=== PATIENT | female | born 1985 | race African-American/Black ===

== ENCOUNTER 2024-07-07 21:19 | Inpatient (IN) | payer OTHER, SELFPAY ==
--- NOTE | 2024-07-07 | ECG_ITS ---
Test Reason : chest tightness Blood Pressure : */* mmHG Vent. Rate : 115 BPM Atrial Rate : 115 BPM P-R Int : 134 ms QRS Dur : 78 ms QT Int : 316 ms P-R-T Axes : 48 86 -8 degrees QTcB Int : 437 ms Sinus tachycardia Nonspecific T wave abnormality Abnormal ECG No previous ECGs available Referred By: Generic ED Physician Electronically Signed By: MONROE RICHEY MD
--- NOTE | ~2024-07-07 | US_ITS ---
CLINICAL HISTORY: pain, swelling L leg - PE + on CT Venous duplex ultrasound bilateral lower extremity Comparison: None Findings: The visualized deep veins of the right lower extremity appear patent. Thrombus identified at the left common femoral vein, left popliteal vein, and left peroneal vein. The thrombus appears partially occlusive at the left common femoral vein. The thrombus may be occlusive the left popliteal and left peroneal veins. The remainder of the visualized deep veins of the left lower extremity appear patent. No popliteal cyst. IMPRESSION: 1. Positive for deep venous thrombosis at the left common femoral, left popliteal, and left peroneal veins. 2. Negative for right lower extremity deep venous thrombosis. This document has been electronically signed by: Ricardo Amaro MD on 07/07/2024 23:33:51
--- NOTE | ~2024-07-07 | CT_ITS ---
CLINICAL HISTORY: requested per ICU, syncope, no TERRELL, no deficits - bed 254 CT head without contrast Comparison: None Findings: No intra-axial mass, midline shift, hydrocephalus, or acute hemorrhage. No significant atrophy-like change or white matter disease. There is no sinus or mastoid fluid. The orbits are unremarkable. There is no acute fracture. IMPRESSION: 1. No acute intracranial findings. This document has been electronically signed by: Jesus Ruiz MD on 07/08/2024 05:46:44
--- NOTE | ~2024-07-07 | CT_ITS ---
CLINICAL HISTORY: R CP, tachycardia, + syncope, SOB CT angiography chest using contrast. 3-D postprocessing Comparison: CR - XR CHEST 2V - 07/07/24 21:49 EDT Findings: Saddle pulmonary embolism present with thrombus extending into the right upper lobe and right lower lobe pulmonary arteries. There also appears to be slight extension into segmental right upper lobe and right lower lobe pulmonary arterial branches. There is also extension of filling defects into the left upper lobe, lingular, and left lower lobe pulmonary arteries with additional extension into segmental pulmonary arterial branches throughout the left lung as well as subsegmental left lower lobe pulmonary arterial branches No thoracic aorta aneurysm. Heart size within normal limits. Asymmetric enlargement of the right ventricle present Minimal, patchy subpleural right lower lobe opacities are present. No focal consolidation identified within the left lung. No pneumothorax or pleural effusion. Visualized upper abdomen unremarkable. No acute fractures. Impression: 1. Saddle pulmonary embolism with a large bilateral PE burden as described above. There are findings suggesting right heart strain. 2. Minimal subpleural opacities present at the right lower lobe, possibly related to ischemia given the presence of pulmonary embolism. This document has been electronically signed by: Ricardo Amaro MD on 07/07/2024 23:26:55
--- NOTE | ~2024-07-07 | XR_ITS ---
CLINICAL HISTORY: cough shortness of breath 2 view chest x-ray. Comparison: None Findings: Vague/minimal right perihilar and right basilar densities are identified. No focal consolidation identified within the left lung. No pneumothorax or pleural effusion. Heart size normal. Impression: 1. Vague, minimal right perihilar and right basilar densities, which may represent scattered atelectasis or infiltrates. This document has been electronically signed by: Ricardo Amaro MD on 07/07/2024 22:41:28
[2024-07-07 21:32] VITALS: BP 137/81; PULSE 114; RESP 22; TEMP 37.3; O2SAT 96; BMI 33.2
[2024-07-07 21:36] LABS: MANUAL DIFF FLAG NO
[2024-07-07 21:38] LABS: Basophils Percent Auto 0.4 % (0-2); Eosinophils Absolute Auto 0.1 X10*3/uL (0.0-0.4); Eosinophils Percent Auto 0.8 % (0-4); Hematocrit 36.4 % (37.0-47.0); Hemoglobin 12.1 g/dl (12.0-16.0); Imm Gran Abs Auto 0.02 X10*3/uL (0.00-0.03); Imm Gran Pct Auto 0.3 % (0.0-0.4); Lymphocytes Absolute Auto 1.5 X10*3/uL (1.2-4.9); Lymphocytes Percent Auto 21.5 % (20-40); Mean Corpuscular HGB Conc 33.2 g/dl (31.0-35.0); Mean Corpuscular Hemoglobin 25.4 pg (27.0-33.0); Mean Corpuscular Volume 76.3 fL (80.0-98.0); Mean Platelet Volume 9.3 fL (9.4-12.3); Monocytes Absolute Auto 0.4 X10*3/uL (0.1-1.2); Monocytes Percent Auto 5.2 % (2-11); Neutrophils Absolute Auto 5.1 x10*3/uL (2.0-8.3); Neutrophils Percent Auto 71.8 % (45-73); Platelet Count 203 X10*3/uL (160-400); Red Blood Count 4.77 X10*6/uL (4.20-5.50); Red Cell Distribution Width 13.2 % (11.0-16.0); White Blood Count 7.1 X10*3/uL (4.8-10.8)
[2024-07-07 21:51] LABS: Alanine Aminotransferase 18 U/L (0-31); Albumin Level 3.9 g/dL (3.5-5.0); Alkaline Phosphatase 95 U/L (39-117); Anion Gap 13 (12-20); Aspartate Amino Transferase 25 U/L (5-31); Bilirubin Total 0.3 mg/dL (0.0-1.0); Blood Urea Nitrogen 11 mg/dL (9-16); Calcium 9.6 mg/dL (8.4-10.2); Carbon Dioxide 23 mmol/L (22-29); Chloride 108 mmol/L (96-108); Creatinine Clr Calc Pharmacy 114.7; Estimated Glomerular Filt Rate > 60; Glucose Random 163 mg/dL (60-115); Potassium 3.7 mmol/L (3.3-5.1); Sodium 140 mmol/L (135-145)
[2024-07-07 22:14] VITALS: RESP 27
--- NOTE | 2024-07-07 22:30 | PC.NURSE ---
Late entry. PT comes from waiting room- short of breath, increased work of breathing noted while ambulating to bed room. PT reports that she has been having difficulty breathing since May when she was diagnosed with pneumonia,ensdoring left calf pain that started in April, and today a syncopal episode. PT reports that she has been having difficulty doing ADL's and caring for her children. Recently travel 18 hours from [place]. IV line placed in Left AC, pt placed on chha provider notified of symptoms. VSS. plan of care ongoing
--- NOTE | 2024-07-07 22:34 | ED_ITS ---
HPI - SOB/Dyspnea General Chief Complaint: Dyspnea Stated Complaint: SOB, tightness in chest, cough Time Seen by Provider: 07/07/24 22:24 Source: patient Mode of arrival: ambulatory Limitations: no limitations History of Present Illness ED Provider: Dr. Abigail Fitzgerald HPI Narrative: Patient comes to the emergency room complaining of shortness of breath and palpitations. Patient states that yesterday started with a dry cough and right lateral rib pain. Patient states that today she has been short of breath all day, today she took a shower and coming out of the bathroom walking towards the door she has syncopal episode. Patient states that she does not remember if she hit the ground hard or if she was able to lower herself down. Patient denies headache or neck pain. Patient denies being on any blood thinners. Patient states that about a month ago she was diagnosed with a pneumonia and gradually was getting better. Patient complaining of chest tightness, mild discomfort, no significant pain. Patient states that she gets extremely short of breath with very minimal exertion. Patient states that she just drove 18 hours straight. Related Data Allergies Allergy/AdvReac Type Severity Reaction Status Date / Time No Known Allergies Allergy Verified 07/07/24 21:36 Review of Systems 2 Review of Systems: Constitutional : No Weight loss, No Fever, No Chills, No Night Sweats, No Fatigue, No Malaise ENT/Mouth : No Hearing loss, No Ear Pain, No Nasal Congestion, No Sinus Pain, No Hoarseness, No sore throat, No Rhinorrhea, No Swallowing Difficulty Eyes: No Eye Pain, No Swelling, No Redness, No Foreign Body, No Discharge, No Vision Changes Cardiovascular : Complaining of mild chest tightness, localized chest pain on the right side of the chest, shortness of breath, palpitations Respiratory : No Cough, No Sputum, No Wheezing, No Smoke Exposure, complaining of dyspnea with exertion Gastrointestinal : No Nausea, No Vomiting, No Diarrhea, No Constipation, No abdominal Pain, No Hematochezia, No Melena Genitourinary : no irregular bleeding, No Dysuria, No Urinary Frequency, No Hematuria, No Urinary Incontinence, No Urgency, No Flank Pain, No Urinary Flow Changes, No Hesitancy Musculoskeletal : No joint pain, No Myalgias, No Joint Swelling Skin : No Skin Lesions, No rash Neuro : No Weakness, No Numbness, No Paresthesias, No Loss of Consciousness, No Dizziness, No Headache Psych : No Anxiety/Panic, No Depression, No SI/HI/AH/VH, No Social Issues, Heme/Lymph: No Bruising, No Bleeding,No Lymphadenopathy Endocrine : No Polyuria, No Polydipsia, No Temperature Intolerance PMFSH Social History Social History Smoked in Last 30 Days: No Physical Exam 2 Vital Signs: Vital Signs: Last Vital Signs Temp 99.2 F 07/07/24 21:32 Pulse 104 H 07/07/24 23:16 Resp 27 H 07/07/24 22:14 BP 119/76 07/07/24 23:16 Pulse Ox 84 L 07/07/24 23:28 O2 Del Method Room Air 07/07/24 21:32 BMI result Body Mass Index 33.9 Const: Other: Appearance: Alert. Oriented X3. No acute distress. Eyes: Pupils equal, round and reactive to light. ENT: Pharynx normal. Neck: Normal inspection. Neck supple. No lymph nodes noted. No crepitus CVS: Normal heart rate and rhythm. Pulses normal. Normal S1 and S2 Respiratory: Normal breath sounds, no rales or crackles, patient's respiratory rate 06/09/2029. Abdomen: Soft and nontender. No rigidity. No distention. Skin: Skin warm and dry. Normal skin color. Normal skin turgor. Extremities: mild pain to palpation over the left leg, mild swelling Neuro: Oriented X 3. No motor deficit. No sensory deficit. Moving all extremities. No slurred speech. CN 2 through 12 grossly intact Psych: calm, cooperative, normal affect Medications Administered Discontinued Medications Generic Name Dose Route Start Last Admin Trade Name [place] PRN Reason Stop Dose Admin Enoxaparin Sodium 90 mg 07/07/24 22:54 07/07/24 23:10 Enoxaparin Sodium 100 Mg/Ml Syringe 1 mg/kg (90 mg) 07/07/24 22:55 90 mg SUBCUT Administration ONCE ONE Iohexol 75 ml 07/07/24 22:47 07/07/24 22:47 Iohexol 350 Mg/Ml 100 Ml Infus..Btl IV 07/07/24 22:48 75 ml ONCE ONE Administration Medical Decision Making Medical Decision Making MDM Narrative: My interpretation of EKG: Sinus tachycardia, heart rate 116, no ST segment depression or elevation, nonspecific T-wave inversion in lead 3, AVF, QTC 437 My interpretation of labs: No significant abnormality in patient's hematology, chemistry shows normal electrolytes. Normal LFTs, troponin 448 Chest x-ray: Minimal right perihilar and right basilar densities, atelectasis versus infiltrates Given the patient's symptoms and presentations, I ordered a CT scan to rule out pulmonary embolism and ultrasound of both lower extremities CTA scan was done. My interpretation: Saddle embolus suspected, Radiology report pending, stat radiology report requested Lovenox 1 milligram/kilogram has been ordered. Patient is hemodynamically stable, blood pressure 137/81, heart rate [address] with Radiology, it has been confirmed that the patient has a saddle embolism with right heart strain Also, patient has a large DVT at the left common femoral left popliteal and left peroneal veins I discussed the patient with Dr. El from the ICU, patient is hemodynamically stable, oxygen saturation 96% on room air. TNK is not indicated I also discussed the patient with Dr. Dyson from vascular surgery. Patient already got Lovenox as mentioned above. Per Dr. Dyson, patient to remain NPO starting now and we will start heparin. Blood clott retrieval surgery will likely be done in the morning. Patient has 2 young children with her here in the hospital, one child is 10-year-old and the other is an 8-year-old. Patient has no family in the [place] states and no friends who can watch over children. I discussed with the patient that we can have DCF help temporarily house it children while she gets treatment. Patient states that if we called DCF, she will leave against medical advice. She does not want us to call DCF at all. It was discussed with the patient that if DCF gets involves, it is not due to social issues where she would lose the custody of the children, this would just be temporary housing for a few days until patient is discharged from the hospital. It was thoroughly explained to the patient that her condition may be fatal if left untreated or if she leaves AMA. Patient adamant that she will not allow her kids to go with DCF and she will walk out with them if DCF comes. I spoke with our greenhouse worker and charge nurse. We will make arrangements to be able to keep the children here. Although both kids are young, they are very well-behaved. They may need a sitter for a few hours while the patient gets her procedure done in the morning. Differential Diagnosis Differential Diagnoses: The differential diagnosis associated with the presentation includes (Pulmonary embolism, pneumonia, CHF) Admission/Observation Consideration of admission/observation: Escalation of care including admission/observation considered Consult Healthcare Provider Management of the patient was discussed with: Hospitalist Lab Data MDM Lab Attestation statement: I reviewed the patient's lab results. 07/07/24 21:30 07/07/24 21:30 Labs: Lab Results 07/07/24 07/07/24 Range/Units 21:30 23:31 WBC 7.1 (4.8-10.8) X10*3/uL RBC 4.77 (4.20-5.50) X10*6/uL Hgb 12.1 (12.0-16.0) g/dl Hct 36.4 L (37.0-47.0) % MCV 76.3 L (80.0-98.0) fL MCH 25.4 L (27.0-33.0) pg MCHC 33.2 (31.0-35.0) g/dl RDW 13.2 (11.0-16.0) % Plt Count 203 (160-400) X10*3/uL MPV 9.3 L (9.4-12.3) fL Immature Gran % (Auto) 0.3 (0.0-0.4) % Neut % (Auto) 71.8 (45-73) % Lymph % (Auto) 21.5 (20-40) % [place] % (Auto) 5.2 (2-11) % Eos % (Auto) 0.8 (0-4) % Baso % (Auto) 0.4 (0-2) % Lymph # (Auto) 1.5 (1.2-4.9) X10*3/uL [place] # (Auto) 0.4 (0.1-1.2) X10*3/uL Eos # (Auto) 0.1 (0.0-0.4) X10*3/uL Baso # (Auto) 0.0 (0.0-0.2) X10*3/uL Abs Immat Gran (auto) 0.02 (0.00-0.03) X10*3/uL Absolute Neuts (auto) 5.1 (2.0-8.3) x10*3/uL Absolute Nucleated RBC 0.000 (0.0-0.012) X10*3/uL Nucleated RBC % (auto) 0.0 (0.0-0.2) /100WBC Sodium 140 (135-145) mmol/L Potassium 3.7 (3.3-5.1) mmol/L Chloride 108 (96-108) mmol/L Carbon Dioxide 23 (22-29) mmol/L Anion Gap 13 (12-20) BUN 11 (9-16) mg/dL Creatinine 0.75 (0.5-1.4) mg/dL Estim Creat Clear Calc 114.7 Estimated GFR > 60 Random Glucose 163 H (60-115) mg/dL Calcium 9.6 (8.4-10.2) mg/dL Total Bilirubin 0.3 (0.0-1.0) mg/dL AST 25 (5-31) U/L ALT 18 (0-31) U/L Alkaline Phosphatase 95 (39-117) U/L Troponin I High Sens 448.0 H* (<3.5-17.0) ng/L B-Natriuretic Peptide 37 (<100) pg/mL Total Protein 8.0 (6.5-8.0) g/dL Albumin 3.9 (3.5-5.0) g/dL Urine Color Yellow Urine Appearance Clear Urine pH 7.0 (5.0-9.0) Ur Specific [place] >= 1.030 H (1.005-1.025) Urine Protein Negative (Neg-Trace) mg/dL Urine Glucose (UA) Negative (Negative) mg/dL Urine Ketones Negative (Negative) mg/dL Urine Blood Trace H (Negative) Urine Nitrite Negative (Negative) Ur Leukocyte Esterase Trace H (Negative) Urine RBC 3-5 H (0-2) /HPF Urine WBC 0-5 (0-5) /HPF Ur Squamous Epith Cells 0-2 (0-2) /HPF Urine Bacteria None Seen (None Seen) Hyaline Casts 0-2 (0-2) /LPF Urine Test NEGATIVE (NEGATIVE) Independent Interpretation I performed an independent interpretation of an: EKG and CT Scan Critical Care Time Critical Care Time Critical Care Time: Yes Total Critical Care Time: 90 Attestation: I have personally provided critical care time. Time includes review of lab data, radiology results, discussion with consultants, and monitoring for potential decompensation. Intervention performed as documented. Discharge Plan Discharge Clinical Impression: Acute saddle pulmonary embolism, Left leg DVT Patient Disposition: Admitted As Inpatient
[2024-07-07] MEDS: iohexoL 350 MG/ML 100 ML INFUS..BTL 75 ML IV (22:47)
[2024-07-07 22:51] LABS: B Type Natriuretic Peptide 37 pg/mL (<100)
[2024-07-07] MEDS: Enoxaparin Sodium 100 MG/ML SYRINGE 90 MG SUBCUT (23:10)
[2024-07-07 23:16] VITALS: BP 119/76; PULSE 104
[2024-07-07 23:28] VITALS: O2SAT 84
[2024-07-07 23:41] LABS: Appearance Urine Clear; Color Urine Yellow; Glucose Urine UA Negative (Negative); Leukocyte Esterase Urine Trace (Negative); Nitrite Urine Negative (Negative); Specific Gravity - Urine >= 1.030 (1.005-1.025); UMIC TRIGGER UACC YES; Urine Blood Trace (Negative); Urine Ketones Negative (Negative); Urine Protein Negative (Neg-Trace)
[2024-07-07 23:46] LABS: Bacteria Urine None Seen (None Seen); Hyaline Casts Urine 0-2 /LPF (0-2); Squamous Epithelial Cell Urine 0-2 /HPF (0-2); WBC Urine 0-5 /HPF (0-5)
[2024-07-07 23:48] LABS: UPreg QC Valid YES; Urine Pregnancy NEGATIVE (NEGATIVE)
[2024-07-07 23:53] VITALS: BMI 33.9
[2024-07-08] VITALS (41 sets, daily range): BP systolic 96–133; BP diastolic 57–93; PULSE 74–98; RESP 17–32; TEMP 36.4–36.9; O2SAT 97–100; BMI 33.0
[2024-07-08] MEDS: Heparin Sodium,Porcine/1/2NS 25,000 UNIT/250 ML IV.SOLN 13.33 UNIT IVCONT (00:38)
--- NOTE | 2024-07-08 00:53 | P.HPCC_ITS ---
History of Present Illness Date of Service: 07/08/24 Attending physician on admission: Lux El Chief Complaint: Saddle PE 39-year-old female with a history of pneumonia about a month ago, had travel by car for approximately 18 hours straight. ?Presents to the emergency room complaints of shortness of breath, chest tightness and cough, palpitations for the past 24 hours.? She has also had some bilateral rib discomfort and dry cough, noted to become significantly short of breath when coming out of the shower and developed a syncopal episode. ?Patient does not recall and subsequent events or if there was any head trauma although she denied headache or neck pain. In the emergency room the patient was noted to be tachycardic, tachypneic and at some point hypoxic with O2 sat of 84% with ambulation.? Her laboratory workup was overall unremarkable with exception of troponin of 400.? She is not .? Chest x-ray shows findings concerning for infiltrates however the patient has no fever and no white count.? She did have a CT angiogram of the chest which shows saddle pulmonary embolisms with large bilateral PE burden and evidence of right heart strain.? Minimal subpleural opacities in the right lower lobe possibly related to ischemia in the setting of PE. ?Ultrasound of the left lower extremity revealed a deep vein thrombi from the left femoral into the popliteal and peroneal veins.? No DVT on the right leg.? EKG shows sinus tachycardia rate of 115 beats per minute.? There is no ST elevations or depressions noted.? QT 316 ms no comparison. Patient was given full-dose Lovenox, case was discussed with Dr. Dyson (vascular surgeon) plan for clot retrieval is planned in the morning and request to start heparin without a load was made, this was started in the emergency room. Review of Systems 2 Review of Systems: As above, otherwise the patient denies any prior history of strokes, cold intolerance, migraine headaches, head trauma, no eyes, ears or nose problems, no problems swallowing or with phonation, no thyroid disease, denies any history, coronary disease, , COPD or emphysema, abdominal pain, nausea, vomiting, diarrhea, abdominal surgeries, melena, hematochezia, hematemesis, hematuria, kidney stones, liver problems, immunocompromise state of any kind, fractures or extremity surgeries all other review of systems were reviewed and they were all negative. [facility] Social History Social History Household Members: Children Housing: Apartment Do you presently have visiting nurse or other home services: No Patient Tobacco Use Status: Never used Tobacco Smoked in Last 30 Days: No Use of substances other than those prescribed or required for medical reasons: No Currently Displaying Signs/Symptoms of Drug Intoxication Withdrawal: No Any prior treatment program specific to substance use: No Have you been hit, kicked, punched, or otherwise hurt by someone within the past year? If so, by whom?: No Do you feel safe in your current relationship?: No Current Relationship Is there a partner from a previous relationship who is making you feel unsafe now?: No Are you made to feel afraid or neglected: No Advance Directives: No Advance Directives Information Provided: Yes Do you have a plan to hurt others: No Plan Recently lost weight without trying: No How much weight loss: Not applicable Eating poorly because of decreased appetite: No Nutrition screen score: 0 Nutrition Risks: No Nutritional Risk Patient : No : No Poor oral hygiene: No Meds Allergies Allergy/AdvReac Type Severity Reaction Status Date / Time No Known Allergies Allergy Verified 07/07/24 21:36 Active Medications: Current Medications Heparin Sodium (Porcine) (Heparin Sodium,Porcine 5,000 Unit/Ml Vial) 3,800 unit 40 unit/kg (3800 unit) IVPUSH PROTOCOL BOLUS PRN; Protocol PRN Reason: 40 unit/kg - Heparin Protocol Heparin Sodium (Porcine) (Heparin Sodium,Porcine 5,000 Unit/Ml Vial) 7,600 unit 80 unit/kg (7600 unit) IVPUSH PROTOCOL BOLUS PRN; Protocol PRN Reason: 80 unit/kg - Heparin Protocol Heparin Sodium/Sodium Chloride (Heparin Sodium,Porcine/1/2ns) 25,000 unit in 250 mls @ 0 mls/hr IVCONT .Q0M PEPE; Protocol Last Admin: 07/08/24 00:38 Dose: 14 units/kg/hr, 13.33 mls/hr Physical Exam 2 Vital Signs: Vital Signs: Last Vital Signs Temp 99.2 F 07/07/24 21:32 Pulse 104 H 07/07/24 23:16 Resp 27 H 07/07/24 22:14 BP 119/76 07/07/24 23:16 Pulse Ox 84 L 07/07/24 23:28 O2 Del Method Room Air 07/07/24 21:32 BMI result Body Mass Index 33.9 General:? Alert oriented x3 no acute distress. No accessory muscle usage.? Following all commands. Skin:? Thin, Intact, no lesions, edema, erythema, clubbing or cyanosis.? No ulcers. HEENT:? Head is normocephalic, atraumatic, pupils equal. Buccal mucosa is dry Neck is supple without lymphadenopathy. Cardiac:? Clear S1-S2, no murmurs rubs or gallops. Pulmonary:? Diminished lung sounds bilaterally fine expiratory wheezing bilaterally .? No crackles, rales or rhonchi. Abdomen:? Protuberant, positive bowel sounds in all 4 quadrants.? Soft, nontender, no rebound or guarding.? Musculoskeletal:? Moving all 4 extremities upon request a major joints, there is no crepitus or tenderness.? The strength is 5/5 bilaterally and throughout all 4 extremities.? There is left lower extremity edema up to tibial plateau with clear asymmetry comparison to right. There is positive calf tenderness on the left.? Gait not assessed at this point. Neurologic:? As above.? No focal deficits noted. Vascular:? 2+ pulses upper and lower extremities distally.? Less than 2nd capillary refill of fingers and toes bilaterally upper and lower extremities Results Labs 07/08/24 01:36 07/08/24 06:33 Labs: Laboratory Results - last 24 hr 07/07/24 07/07/24 21:30 23:31 MCV 76.3 L MCH 25.4 L MCHC 33.2 RDW 13.2 Plt Count 203 MPV 9.3 L Immature Gran % (Auto) 0.3 Neut % (Auto) 71.8 Lymph % (Auto) 21.5 [place] % (Auto) 5.2 Eos % (Auto) 0.8 Baso % (Auto) 0.4 Lymph # (Auto) 1.5 [place] # (Auto) 0.4 Eos # (Auto) 0.1 Baso # (Auto) 0.0 Abs Immat Gran (auto) 0.02 Absolute Neuts (auto) 5.1 Absolute Nucleated RBC 0.000 Nucleated RBC % (auto) 0.0 Anion Gap 13 Estim Creat Clear Calc 114.7 Estimated GFR > 60 Random Glucose 163 H Calcium 9.6 Total Bilirubin 0.3 AST 25 ALT 18 Alkaline Phosphatase 95 B-Natriuretic Peptide 37 Total Protein 8.0 Albumin 3.9 Urine Color Yellow Urine Appearance Clear Urine pH 7.0 Ur Specific [place] >= 1.030 H Urine Protein Negative Urine Glucose (UA) Negative Urine Ketones Negative Urine Blood Trace H Urine Nitrite Negative Ur Leukocyte Esterase Trace H Urine RBC 3-5 H Urine WBC 0-5 Ur Squamous Epith Cells 0-2 Urine Bacteria None Seen Hyaline Casts 0-2 Urine Test NEGATIVE Assessment and Plan (1) Acute saddle pulmonary embolism: Status: Acute Plan ASSESSMENT : 1. Acute saddle pulmonary embolism 2. Right heart strain due to the above 3. Hypoxia in the setting of the above 4. Reactive tachycardia and tachypnea 5. Left lower extremity DVT 6. Reactive troponin abnormality 7. Syncope episode likely due to #1 r/o ACS PLAN OF CARE: Patient will be admitted to the ICU due to risk of decompensation setting of her saddle pulmonary emboli and right heart strain.? Vital signs, I's and O's, supplemental oxygenation via nasal cannula.? Case have been discussed with vascular surgeon Dr. Dsyon who will perform clot retrieval in the morning.? The patient received full-dose Lovenox and was subsequently started on heparin drip per protocol without a load. ?We will continue with supportive care, repeat labs in the morning.? NPO after midnight. ?Case discussed with ER physician Dr. Christina's to whom I kindly asked to order head CT given the patient's history of syncope and lack of knowledge of losses of consciousness or head trauma, however head CT can not be done until about 05:00 this morning given the contrast administered for the PE study. Echo in am. GI PROPHYLAXIS: ?IV ppi DVT PROPHYLAXIS: ?On heparin drip Critical care time used for critical evaluation of this patient, diagnosis, treatment and coordination of care, review her records and documentation TOTAL CRITICAL CARE TIME 60?? MIN . discussion and coordination with consultants, completely separate from any procedures performed. Patient's care was discussed in detail with Dr. El who is aware of all the above as well as the plan of care for this patient.
[2024-07-08 01:06] LABS: Prothrombin Time 12.2 SEC (10.9-12.4)
[2024-07-08 01:08] LABS: Partial Thromboplastin Time 38.5 SEC (26.0-36.8)
[2024-07-08 01:15] LABS: D Dimer High Sensitivity 6554 NG/ML
--- NOTE | 2024-07-08 01:31 | PC.NURSE ---
Heparin drip started at 14u/kg/h verified and cosigned by VIKTOR Mandujano. PTT drawn prior to heparin drip started. redraw due for 0996
--- NOTE | 2024-07-08 01:33 | PC.NURSE ---
Report given to Shanna CAR BLOCKER. Pt transported to ED by TW and medical research tech. Children at bedside. roundhouse supervisor and ICU provider ok'd children to stay over night as pt has no family, not from the area.
[2024-07-08 01:46] LABS: MANUAL DIFF FLAG NO
[2024-07-08 01:47] LABS: Basophils Percent Auto 0.6 % (0-2); Eosinophils Absolute Auto 0.1 X10*3/uL (0.0-0.4); Eosinophils Percent Auto 1.3 % (0-4); Hematocrit 38.3 % (37.0-47.0); Imm Gran Abs Auto 0.01 X10*3/uL (0.00-0.03); Imm Gran Pct Auto 0.1 % (0.0-0.4); Lymphocytes Absolute Auto 2.2 X10*3/uL (1.2-4.9); Lymphocytes Percent Auto 30.6 % (20-40); Mean Corpuscular HGB Conc 33.9 g/dl (31.0-35.0); Mean Corpuscular Hemoglobin 25.5 pg (27.0-33.0); Mean Corpuscular Volume 75.1 fL (80.0-98.0); Mean Platelet Volume 9.4 fL (9.4-12.3); Monocytes Absolute Auto 0.5 X10*3/uL (0.1-1.2); Monocytes Percent Auto 6.7 % (2-11); Neutrophils Absolute Auto 4.4 x10*3/uL (2.0-8.3); Neutrophils Percent Auto 60.7 % (45-73); Platelet Count 222 X10*3/uL (160-400); Red Cell Distribution Width 13.4 % (11.0-16.0); White Blood Count 7.2 X10*3/uL (4.8-10.8)
[2024-07-08 02:09] LABS: Troponin-I High Sensitivity 633.1 ng/L (<3.5-17.0)
--- NOTE | 2024-07-08 07:00 | CA_ITS ---
Transthoracic Echocardiogram Patient (Last, First, Middle): Marilynn Batista, Gender: Female Date of : 1985 Age: 39 Procedure Date: 07/08/2024 Procedure Type: Transthoracic Echocardiogram Location: ICU Height: 167.64 cm Weight: 92.53 kg BSA: 2.02 m2 Heart Rate: 91 bpm BP: 131 / 87 mmHg Mobile Phlebotomist: MARIAH Referring MD: Tae ROBISON Computer Architect: Tab Haney MD Symptoms: saddle PE Study Quality: Adequate ECG Rhythm: Sinus Conclusions: - 1. RV enlargement with findings suggestive of acute cor pulmonale 2. Normal LV ejection fraction of 60 65% 3. Cardiac valvular Dopplers within normal limits 4. Moderately elevated right ventricular systolic pressure with mildly elevated right atrial pressures 5. No gross pericardial effusion Findings Left Ventricle Normal left ventricular size, thickness, and systolic function. The visually estimated ejection fraction is between 60-65%. There is a flattened septum in systole consistent with right ventricular pressure overload. Spectral Doppler is indicative of a normal filling pattern. Right Ventricle Moderately increased right ventricular cavity size. There is hypokinesis of the free wall with preserved apical contraction, findings consistent with Coates sign suggestive of acute cor pulmonale Atria The left atrium is normal in size. There is no evidence of interatrial shunt. The right atrium is likely dilated. Aortic Valve Normal aortic valve structure and function. There is no aortic valve stenosis. There is no aortic valve regurgitation. Mitral Valve Normal mitral valve structure and function. There is trace mitral valve regurgitation. There is no mitral valve stenosis. Pulmonic Valve The pulmonic valve is likely normal. Tricuspid Valve Normal tricuspid valve structure. There is mild tricuspid valve regurgitation. Mildly elevated right atrial pressure. Moderate pulmonary hypertension is present. Great Vessels All visible segments of the aorta are normal in size. The pulmonary artery was not well visualized. Venous The inferior vena cava is normal in size and collapses less than 50% with inspiration. Pericardium/Pleural There is no evidence of pericardial effusion. Prior Study Comparison No prior study available for comparison. Measurements 2D Linear Measurements IVSd: 0.96 0.6-0.9/0.6-1.0 cm LVIDd: 3.51 3.9-5.3/4.2-5.9 cm LVIDd Index: 1.74 2.4-3.2/2.2-3.1 cm/m2 LVIDs: 2.06 2.0-3.6 cm LVPWd: 0.92 0.7-1.1 cm LA Diam: 3.10 2.7-3.8/3.0-4.0 cm LAIDs Index: 1.53 1.5-2.3 cm/m2 LV Mass: 151.61 67-162/88-224 g LV Mass Index: 75.05 43-95/49-115 g/m2 LVOT Diam: 1.80 3.0+(-)1.3 cm 2D Systolic Function EF 4C: 60.80 >55% EF 2C: 62.20 >55% EF BiP: 60.50 >55% Mitral Valve MV Pk E: 0.58 MV PK A: 0.52 MV Decel Time: 231.00 E/A: 1.10 E'Lateral: 10.00 E'Medial: 5.98 E/E' Med: 9.70 E/E' Lat: 5.80 PHT: 68.00 MVA PHT: 3.24 Decel Sharkey: 2.53 Aortic Valve AoV Pk Mk: 1.02 AoV Pk Grad: 4.00 DUANE: 2.37 LVOT LVOT Pk Mk: 0.88 LVOT Mn Mk: 0.65 LVOT VTI: 0.17 LVOT Pk Grad: 3.00 LVOT Mn Grad: 2.00 LVOT Diam: 1.80 LVOT Area: 2.54 Diastolic Function MV Pk E: 0.58 MV Pk A: 0.52 E/A: 1.10 E'Medial: 5.98 E/E' Med: 9.70 E' Laterial: 10.00 E/E' Lat: 5.80 Right Ventricle TAPSE (mm): 12.20 TVS' Mk: 8.16 Tricuspid Valve TR Pk Mk: 3.42 TR Pk Grad: 47.00 RA Press: 8.00 RVSP: 55.00 Great Vessels Aorta Sinus of Valsalva: 2.80 2.0-3.5 cm Ao Asc: 2.60 2.1-3.4 cm Pulmonary Veins Pulm Vein S/D 1.10 Pulmonary Valve PV Pk Mk: 0.50 Peak PV Grad: 1.00 Updated in Other Vendor System with Status of Final Tab Haney MD electronically signed on 07/08/2024 3:51:50 PM with status of Final
[2024-07-08 07:37] LABS: PTT Heparin Drip 105.4 SEC (53-77.9)
[2024-07-08 07:46] LABS: Alanine Aminotransferase 16 U/L (0-31); Albumin Level 3.9 g/dL (3.5-5.0); Alkaline Phosphatase 86 U/L (39-117); Anion Gap 12 (12-20); Aspartate Amino Transferase 33 U/L (5-31); Bilirubin Total 0.5 mg/dL (0.0-1.0); Blood Urea Nitrogen 9 mg/dL (9-16); Calcium 9.6 mg/dL (8.4-10.2); Carbon Dioxide 22 mmol/L (22-29); Chloride 109 mmol/L (96-108); Estimated Glomerular Filt Rate > 60; Glucose Random 92 mg/dL (60-115); Potassium 4.1 mmol/L (3.3-5.1); Sodium 139 mmol/L (135-145); Total Protein 8.2 g/dL (6.5-8.0)
--- NOTE | 2024-07-08 08:28 | PHA.MEDREC ---
Pharmacy Consult ? Medication Reconciliation Pharmacy has completed the medication reconciliation. Patient endorses taking no medications at home
[2024-07-08] MEDS: 0.9 % Sodium Chloride 1,000 ML 100 ML IVCONT (11:19)
--- NOTE | 2024-07-08 11:30 | MHC.CM.PN ---
Met w/pt to discuss d/c planning needs: pt resides w/two minor children ages 11 and 8: independent w/all care needs, works, drives and has no DME or services. Pt states she has not yet established care with a local PCP - she states she will contact [facility] to assign a provider. Pt completed a HCP and states this proxy, Giovanny Michael, will arrive [place] [facility] [place] to [place] pickler her children. Her friend Michelle Rakesh from [place] will then arrive at 8 to care for the children. Pt states she has transportation to home following surgery. She denies needing services. CM to follow Giovanny [phone] Michelle [phone]
--- NOTE | 2024-07-08 13:34 | P.CONGS_ITS ---
<Statement entered by Savage Dyson MD - 07/08/24 17:15> I have seen and evaluated the patient and agree with history, findings, assessment and plan documented by Melva Link PA-c. Patient will require pulmonary embolectomy. Risks benefits complications were discussed in detail with the patient. History of Present Illness Consult details Consult date: 07/08/24 Narrative: We were consulted for Marilynn for concerns of a saddle PE with DVT, found on chest CTA. She presented to the ER late last night with concerns of shortness of breath, palpitations, and dyspnea on exertion. She just drove 18 hours straight in the car, without stopping. She had these symptoms for 24h and got short of breath when showering and had a near syncopal episode. She was found to have a saddle PE with right heart strain as well as a DVT in the left femoral to the popliteal and peroneal veins. She was initially given Lovenox but has been switched to a Heparin drip. She was made NPO at midnight for clot retrieval today. She continues to endorse dyspnea on exertion and shortness of breath. She is not currently on O2 but is being monitored closely in the ICU. Review of Systems 2 Constitutional: Constitutional: Reports as per HPI and Denies weakness ENT: Reports Normal hearing present and Denies dizziness Cardiovascular: Cardiovascular: Reports as per HPI, Denies chest pain, Denies chest pain at rest, Denies chest pain with activity, Denies dyspnea and Denies dyspnea on exertion Respiratory: Respiratory: Reports as per HPI, Denies cough, Denies dyspnea and Denies dyspnea on exertion Gastrointestinal: Gastrointestinal: Reports as per HPI, Denies abdominal pain, Denies nausea and Denies vomiting Musculoskeletal: Musculoskeletal: Denies numbness Integumentary/Breasts: Skin/Breast: Reports as per HPI, Denies erythema and Denies wounds Neurologic: Reports Normal hearing present, Denies dizziness, Denies numbness, Denies Sensory deficit (Neuro) and Denies weakness Psychiatric: Psychiatric: Reports no additional psychiatric complaints Endocrine: Endocrine: Reports no additional endocrine complaints PMFSH Social History Social History Household Members: Children Housing: Apartment Do you presently have visiting nurse or other home services: No Patient Tobacco Use Status: Never used Tobacco Smoked in Last 30 Days: No Use of substances other than those prescribed or required for medical reasons: No Currently Displaying Signs/Symptoms of Drug Intoxication Withdrawal: No Any prior treatment program specific to substance use: No Have you been hit, kicked, punched, or otherwise hurt by someone within the past year? If so, by whom?: No Do you feel safe in your current relationship?: No Current Relationship Is there a partner from a previous relationship who is making you feel unsafe now?: No Are you made to feel afraid or neglected: No Advance Directives: No Advance Directives Information Provided: Yes Do you have a plan to hurt others: No Plan Recently lost weight without trying: No How much weight loss: Not applicable Eating poorly because of decreased appetite: No Nutrition screen score: 0 Nutrition Risks: No Nutritional Risk Patient : No : No Poor oral hygiene: No service: No Meds Allergies Allergy/AdvReac Type Severity Reaction Status Date / Time No Known Allergies Allergy Verified 07/07/24 21:36 Active Medications: Current Medications Heparin Sodium (Porcine) (Heparin Sodium,Porcine 5,000 Unit/Ml Vial) 3,800 unit 40 unit/kg (3800 unit) IVPUSH PROTOCOL BOLUS PRN; Protocol PRN Reason: 40 unit/kg - Heparin Protocol Heparin Sodium (Porcine) (Heparin Sodium,Porcine 5,000 Unit/Ml Vial) 7,600 unit 80 unit/kg (7600 unit) IVPUSH PROTOCOL BOLUS PRN; Protocol PRN Reason: 80 unit/kg - Heparin Protocol Heparin Sodium/Sodium Chloride (Heparin Sodium,Porcine/1/2ns) 25,000 unit in 250 mls @ 0 mls/hr IVCONT .Q0M [facility]; Protocol Last Titration: 07/08/24 13:32 Dose: 0 units/kg/hr, 0 mls/hr Sodium Chloride (Ns) 1,000 mls @ 100 mls/hr IVCONT .Q10H [facility] Last Admin: 07/08/24 11:19 Dose: 100 mls/hr Physical Exam 2 Vital Signs: Vital Signs: Last Vital Signs Temp 98.1 F 07/08/24 12:00 Pulse 95 07/08/24 13:00 Resp 22 H 07/08/24 13:00 BP 117/76 07/08/24 13:00 Pulse Ox 100 07/08/24 13:00 O2 Del Method Room Air 07/08/24 13:00 BMI result Body Mass Index 33.0 Const: General: comfortable and no acute distress O rientation/consciousness: patient oriented x3 HEENT: Ears: hearing grossly normal bilaterally Resp: Other: Increased work of breathing noted. Able to speak in complete sentences but winded easily. Effort & Inspection: normal respiratory effort, able to speak in complete sentences and tachypneic Auscultation: clear to auscultation bilaterally Cardio: Rate: regular rate Rhythm: regular rhythm Heart sounds: S1 normal heart sound present and S2 normal heart sound present Bruits: no abdominal aortic bruits, no carotid bruits, no femoral bruits and no renal bruits GI: Palpation (GI): No Abdominal aortic bruit present Neuro: General: patient oriented x3 Cranial nerves: Yes Normal hearing present Sensory Exam: No Sensory deficit (Neuro) Extrem: Other: Bilateral lower extremities: no erythema or warmth noted. Palpable DP pulses. Results Labs 07/09/24 05:22 07/09/24 05:22 Labs: Abnormal lab results 07/07/24 07/07/24 07/08/24 Range/Units 21:30 23:31 00:40 Hct 36.4 L (37.0-47.0) % MCV 76.3 L (80.0-98.0) fL MCH 25.4 L (27.0-33.0) pg MPV 9.3 L (9.4-12.3) fL APTT 38.5 H (26.0-36.8) SEC aPTT Heparin Protocol (53-77.9) SEC Chloride (96-108) mmol/L Random Glucose 163 H (60-115) mg/dL AST (5-31) U/L Troponin I High Sens 448.0 H* (<3.5-17.0) ng/L Total Protein (6.5-8.0) g/dL Ur Specific [place] >= 1.030 H (1.005-1.025) Urine Blood Trace H (Negative) Ur Leukocyte Esterase Trace H (Negative) Urine RBC 3-5 H (0-2) /HPF 07/08/24 07/08/24 07/08/24 Range/Units 01:35 01:36 06:33 Hct (37.0-47.0) % MCV 75.1 L (80.0-98.0) fL MCH 25.5 L (27.0-33.0) pg MPV (9.4-12.3) fL APTT (26.0-36.8) SEC aPTT Heparin Protocol 105.4 H (53-77.9) SEC Chloride 109 H (96-108) mmol/L Random Glucose (60-115) mg/dL AST 33 H (5-31) U/L Troponin I High Sens 633.1 H* (<3.5-17.0) ng/L Total Protein 8.2 H (6.5-8.0) g/dL Ur Specific [place] (1.005-1.025) Urine Blood (Negative) Ur Leukocyte Esterase (Negative) Urine RBC (0-2) /HPF Short CBC 07/07/24 07/08/24 Range/Units 21:30 01:36 WBC 7.1 7.2 (4.8-10.8) X10*3/uL Hgb 12.1 13.0 (12.0-16.0) g/dl Hct 36.4 L 38.3 (37.0-47.0) % Plt Count 203 222 (160-400) X10*3/uL BMP 07/07/24 07/08/24 21:30 06:33 Sodium 140 139 Potassium 3.7 4.1 Chloride 108 109 H Carbon Dioxide 23 22 BUN 11 9 Creatinine 0.75 0.67 Calcium 9.6 9.6 Liver Function 07/07/24 07/08/24 Range/Units 21:30 06:33 Total Bilirubin 0.3 0.5 (0.0-1.0) mg/dL AST 25 33 H (5-31) U/L ALT 18 16 (0-31) U/L Alkaline Phosphatase 95 86 (39-117) U/L Albumin 3.9 3.9 (3.5-5.0) g/dL Urine 07/07/24 Range/Units 23:31 Urine Color Yellow Urine Appearance Clear Urine pH 7.0 (5.0-9.0) Ur Specific [place] >= 1.030 H (1.005-1.025) Urine Protein Negative (Neg-Trace) mg/dL Urine Glucose (UA) Negative (Negative) mg/dL Urine Test NEGATIVE (NEGATIVE) All other labs normal. Assessment and Plan (1) Acute saddle pulmonary embolism: Qualifiers: Acute cor pulmonale presence: unspecified Qualified Code(s): I26.92 - Saddle embolus of pulmonary artery without acute cor pulmonale Status: Acute Plan We were consulted on Marilynn, who presented to the ER last night with shortness of breath, heart palpitations, and dyspnea on exertion. She had been experiencing these symptoms for appx 24h, after driving 18 hours straight in the car. She was found to have a saddle PE on chest CTA as well as DVT in the left femoral vein to the popliteal and peroneal veins. She is a nonsmoker and has never had a blood clot before. She was started on a Heparin drip and admitted to the ICU for clot retrieval today. She continues to endorse shortness of breath and dyspnea on exertion. We will be taking her today for an embelectomy of the saddle PE. We discussed that she will need to continue on oral anticoagulation for at least 6 months. Thank you for the consult, we will continue to monitor. If there are any questions or concerns, please do not hesitate to reach out to us. Procedures Date of Service Date of Service: 07/09/24
[2024-07-08] MEDS: fentaNYL citrate/PF 100 MCG/2 ML VIAL 25 MCG IVPUSH ×3 (14:45→15:45)
[2024-07-08] MEDS: Midazolam HCl 2 MG/2 ML VIAL 0.5 MG IVPUSH ×3 (14:45→15:45)
[2024-07-08] MEDS: Heparin Sodium,Porcine 10,000 UNIT/10 ML VIAL 10000 UNIT IVPUSH (15:00)
--- NOTE | 2024-07-08 17:24 | P.OP_ITS ---
Operative Note Operative Note Date of Service: 07/08/24 Narrative: Operative note by [facility] Preoperative diagnosis: DVT with PE Postoperative diagnosis: Same Procedure:1. Ultrasound-guided right common femoral vein access 2. Inferior vena cavogram 3. Selective right pulmonary artery angiogram 4. Selective left pulmonary artery angiogram 5. Mechanical thrombectomy of pulmonary embolism of bilateral pulmonary artery 6. Return of blood using flow Saver system 7. Radiologic supervision and interpretation. Surgeon:Savage Dyson M.D. Medical Sonographer: None Anesthesia: Local with moderate conscious sedation. Total intraservice moderate sedation time was 100 minutes. I monitored the patient's level of consciousness and physiologic status continuously throughout the procedure. Specimens: none Drains :none Estimated blood loss: Less than 50 ml Implant: None Comorbid conditions: Acute respiratory failure with hypoxia, acute saddle pulmonary embolism, right heart strain , Indications: Patient was noted to have submassive pulmonary embolism.. CT of t he chest was reviewed and demonstrated saddle pulmonary embolism. Heparin drip was initiated immediately. Due to the clot burden the patient now presents for pulmonary embolectomy. The patient has signed the informed consent after reviewing risks, complications, benefits, and alternatives previously discussed with the patient. The patient was given the opportunity to ask any additional questions or voice any concerns. All questions were answered to the patient's satisfaction. Procedure in detail: Patient was brought to the angiography suite prior to which a time-out was called for patient identification and site verification. Bilateral groins were prepped and draped in the standard surgical fashion. Under ultrasound guidance right common femoral vein was punctured with micro puncture needle and wire. Subsequently a precision 5 Bel[place]ian sheath was then placed. Bentson wire was advanced to the level of the vena cava. 4 Bel[place]ian Flush catheter was brought up and parked at the level of the renal arteries. Vena cavogram was then undertaken. The patient was systemically anticoagulated with heparin [place] [address] units of heparin. We then advanced a Bentson wire all the way up into the inferior vena cava to the atrial junction. We then advanced a pigtail catheter through that from the right atrium to the right ventricle into the pulmonary artery. We then readvanced the Bentson wire through this. In order to confirm appropriate positioning and no trauma to cardiac tissue we advanced pigtail catheter. We met no resistance. At this time we did a selective image the right main pulmonary artery and subsequently the left main pulmonary artery. We then advanced the INTRI 24 [place]ian sheath. Over this we then placed TRIEVER 24 large- bore catheter. This was directed towards the right pulmonary artery. We then successfully aspirated moderate clot burden. Once the syringe was filled we placed this through the flow Saver blood filtering system and returned the blood back to the patient. Several aspirations were performed until we had no thrombus return. Once this was all done completion imaging was then undertaken. No residual thrombus was noted. In a similar fashion we then turned our attention to the left. We advanced a Doherty wire into the left main pulmonary artery we advanced a 16 Bel[place]ian flow tree verse system we were able to do multiple aspirations and obtain good clot burden. Completion angiogram demonstrated good result Catheter wire and sheath were removed. Pursestring suture was placed 10 minutes of direct pressure was held. Patient tolerated the procedure well and was returned to recovery with stable vitals. Interpretation of films: 1. Ultrasound was used to evaluate access site of the femoral vein. The femoral vein was noted to be patent with no thrombus. Ultrasound was used for visualization of needle entry. Image was saved to PACS 2. Vena cavogram demonstrated normal caliber vena cava with no evidence of thrombus. 3. Pulmonary artery imaging demonstrated - significant clot burden with saddle pulmonary embolism 4. Completion imaging demonstrated excellent resolution of clot Conclusion: 1. Successful aspiration of bilateral pulmonary embolisms 2. Anticoagulation status: Continue heparin drip. Can restart formal oral anticoagulation tomorrow This note is constructed using voice recognition software. While every effort has been made to ensure accuracy, dental specialist errors may have been included. Thank you for allowing me to participate in the care of your patient. Yours sincerely, Savage Dyson MD, FACS, R.P.V.I.
[2024-07-08] MEDS: oxyCODONE HCl Immed Release 5 MG TABLET PO (21:32)
[2024-07-08 23:06] LABS: PTT Heparin Drip 81.2 SEC (53-77.9)
[2024-07-09] VITALS (16 sets, daily range): BP systolic 97–138; BP diastolic 49–72; PULSE 74–99; RESP 16–25; TEMP 36.3–36.8; O2SAT 96–100; BMI 35.4
[2024-07-09] MEDS: 0.9 % Sodium Chloride 1,000 ML 100 ML IVCONT ×2 (00:17→09:41)
[2024-07-09] MEDS: Heparin Sodium,Porcine/1/2NS 25,000 UNIT/250 ML IV.SOLN 8.57 UNIT IVCONT (00:17)
[2024-07-09] MEDS: Acetaminophen 325 MG TABLET 650 MG PO ×2 (05:45→11:59)
[2024-07-09 06:07] LABS: MANUAL DIFF FLAG NO
[2024-07-09 06:09] LABS: Basophils Percent Auto 0.5 % (0-2); Eosinophils Absolute Auto 0.1 X10*3/uL (0.0-0.4); Eosinophils Percent Auto 2.1 % (0-4); Hematocrit 30.8 % (37.0-47.0); Hemoglobin 10.4 g/dl (12.0-16.0); Imm Gran Abs Auto 0.03 X10*3/uL (0.00-0.03); Imm Gran Pct Auto 0.5 % (0.0-0.4); Lymphocytes Absolute Auto 1.9 X10*3/uL (1.2-4.9); Lymphocytes Percent Auto 29.5 % (20-40); Mean Corpuscular HGB Conc 33.8 g/dl (31.0-35.0); Mean Corpuscular Hemoglobin 25.9 pg (27.0-33.0); Mean Corpuscular Volume 76.8 fL (80.0-98.0); Mean Platelet Volume 10.4 fL (9.4-12.3); Monocytes Absolute Auto 0.5 X10*3/uL (0.1-1.2); Monocytes Percent Auto 7.3 % (2-11); Neutrophils Percent Auto 60.1 % (45-73); Platelet Count 191 X10*3/uL (160-400); Red Blood Count 4.01 X10*6/uL (4.20-5.50); Red Cell Distribution Width 13.5 % (11.0-16.0); White Blood Count 6.6 X10*3/uL (4.8-10.8)
[2024-07-09 06:19] LABS: PTT Heparin Drip 61.7 SEC (53-77.9)
[2024-07-09 06:26] LABS: Alanine Aminotransferase 12 U/L (0-31); Albumin Level 3.2 g/dL (3.5-5.0); Alkaline Phosphatase 66 U/L (39-117); Anion Gap 11 (12-20); Aspartate Amino Transferase 21 U/L (5-31); Bilirubin Total 0.5 mg/dL (0.0-1.0); Blood Urea Nitrogen 12 mg/dL (9-16); Calcium 8.5 mg/dL (8.4-10.2); Carbon Dioxide 21 mmol/L (22-29); Chloride 111 mmol/L (96-108); Creatinine Clr Calc Pharmacy 145.9; Estimated Glomerular Filt Rate > 60; Glucose Random 86 mg/dL (60-115); Potassium 4.1 mmol/L (3.3-5.1); Sodium 139 mmol/L (135-145); Total Protein 6.4 g/dL (6.5-8.0)
--- NOTE | 2024-07-09 06:30 | PC.NURSE ---
Assumed care 190. Pt alert and oriented x4. SpO2 >98% on RA, no c/o of sob. Moderate amount of blood draining?from R groin surgical site, dressing changed. ENRIQUETA Burns made aware, order to apply sandbag. Heparin gtt adjusted per PTT-HD - see MAR. PRN oxycodone administered for pain x1 with good effect - see JUN. 0500 - No further bleeding from surgical site - sandbag removed.
--- NOTE | 2024-07-09 11:04 | P.PNCC_ITS ---
Subjective Subjective Date of Service: 07/09/24 Interval History: Had some oozing through the left femoral access site overnight which is improving now. Otherwise doing well Critical Care Time (minutes): 35 Physical Exam 2 Vital Signs: Vital Signs: Last Vital Signs Temp 97.5 F 07/09/24 08:00 Pulse 78 07/09/24 10:00 Resp 21 H 07/09/24 10:00 BP 126/63 07/09/24 10:00 Pulse Ox 100 07/09/24 10:00 O2 Del Method Room Air 07/09/24 10:00 O2 Flow Rate 2 07/08/24 16:20 BMI result Body Mass Index 35.4 General: Not in acute distress, comfortably sitting in the bed Nutritional Appearance: well nourished and overweight Eyes: appearance normal, both eyes and all related structures; Alignment and Position: alignment normal and position normal Neck: No lymphadenopathy, no thyromegaly Resp: bilateral air entry equal, no added sounds present Cardio: Regular rate, regular rhythm; Heart sounds: S1 normal heart sound present and S2 normal heart sound present GI: soft, nontender, no guarding, no hepatosplenomegaly : bladder normal to inspection, bladder normal to palpation, no renal angle tenderness Skin: no rashes or lesions noted and elasticity normal Neuro: oriented to person, oriented to place, oriented to time and moves all extremities Objective Data Labs 07/09/24 05:22 07/09/24 05:22 Labs: Laboratory Results - last 24 hr 07/08/24 07/09/24 22:54 05:22 WBC 6.6 RBC 4.01 L D Hgb 10.4 L Hct 30.8 L MCV 76.8 L MCH 25.9 L MCHC 33.8 RDW 13.5 Plt Count 191 MPV 10.4 Immature Gran % (Auto) 0.5 H Neut % (Auto) 60.1 Lymph % (Auto) 29.5 Campbell % (Auto) 7.3 Eos % (Auto) 2.1 Baso % (Auto) 0.5 Lymph # (Auto) 1.9 Campbell # (Auto) 0.5 Eos # (Auto) 0.1 Baso # (Auto) 0.0 Abs Immat Gran (auto) 0.03 Absolute Neuts (auto) 4.0 Absolute Nucleated RBC 0.000 Nucleated RBC % (auto) 0.0 aPTT Heparin Protocol 81.2 H D 61.7 D Sodium 139 Potassium 4.1 Chloride 111 H Carbon Dioxide 21 L Anion Gap 11 L BUN 12 Creatinine 0.61 Estim Creat Clear Calc 145.9 Estimated GFR > 60 Random Glucose 86 Calcium 8.5 D Total Bilirubin 0.5 AST 21 ALT 12 Alkaline Phosphatase 66 Total Protein 6.4 L Albumin 3.2 L Progress Note: A&P Assessment and plan (1) Left leg DVT: Status: Acute (2) Acute saddle pulmonary embolism: Status: Acute Plan Saddle pulmonary embolism: Secondary to left lower extremity DVT which she had symptoms for about 2-3 weeks Her travel history was 2 months ago where she drove from [place] to [place]. We need to look for other etiology. Needs hematology follow-up upon discharge and a complete thrombophilia workup 3 months later. Pending factor 5 leiden mutation. Status post thrombectomy by Dr. Dyson yesterday. Continues to be on a heparin drip, we will switch to p.o. apixaban when I am sure that the access site bleeding has completely stopped. Breathing stable in room air Acute blood loss anemia: Hemoglobin dropped from 13 to 10.4 secondary to bleeding We will continue to closely monitor, transfuse if hemoglobin drops below 7 grams/deciliter We will transfer to floor Quality Stroke Does the patient have a stroke diagnosis?: No VTE Prior VTE?: No VTE Risk Level:: Medical - moderate - high VTE Device Contraindication: N/A - Device Ordered VTE Drug Contraindication: N/A - Med Ordered
--- NOTE | 2024-07-09 12:25 | PM.EVENT ---
Event Note Date of Service: 07/09/24 Event Note: 39-year-old woman admitted to the ICU for saddle emboli hypoxia Acute hypoxic respiratory failure secondary to acute saddle pulmonary embolism with right heart strain Recent car travel 2 months ago No longer on oxygen Thrombophilia workup outpatient Initially started on IV heparin, switched to apixaban Underwent mechanical thrombectomy of pulmonary embolism 07/08/2024 Left lower extremity DVT Continue apixaban Elevated troponin Likely secondary to saddle emboli Syncope Likely secondary to submassive PE Head CT with no acute intracranial findings DVT prophylaxis with Xarelto Time Spent With Patient Time: Total time managing care of this patient today ____ minutes.
[2024-07-09] MEDS: Apixaban 5 MG TABLET 10 MG PO ×2 (12:43→20:39)
--- NOTE | 2024-07-09 12:51 | PC.NURSE ---
Assumed care of patient 0700. Pt asleep 0700. Awakened 0730, sx site to right groin assessed. No signs of bleeding. Dressing is clean dry intact with scant amount of dried serosanguineous drainage. Patient A+Ox4, states minimal pain to sx site. Positive palpable peripheral pulses. Pt on heparin gtt @9 u/kg/hr and NS IVF @100 ml/hr. Patient ambulated short distance to commode 09:30 and 12:45, voided twice on commode, yellow urine. approx 12:45 heparin gtt and continuous IVF discontinued and patient transitioned to PO eliquis 10mg. Medication given. Patient ate small meals brought from home by HCP Giovanny and is drinking water. States mild indigestion. Plan for transfer to [facility] per Dr. El's orders.
[2024-07-09] MEDS: oxyCODONE HCl Immed Release 5 MG TABLET PO (20:38)
[2024-07-09 21:48] LABS: Glucose, Whole Blood 90 mg/dL (60-115)
[2024-07-10 03:56] VITALS: BP 106/61; PULSE 72; RESP 18; TEMP 36.6; O2SAT 98
[2024-07-10 06:00] VITALS: BMI 34.2
[2024-07-10] MEDS: Apixaban 5 MG TABLET 10 MG PO ×2 (07:39→20:50)
[2024-07-10 07:49] VITALS: BP 120/68; PULSE 82; RESP 20; TEMP 37.1; O2SAT 97
--- NOTE | 2024-07-10 08:59 | MHC.CM.PN ---
CM met with Patient at bedside. Patient has a new PCP appointment in February and is requesting assistance with finding a new PCP with an earlier initial appointment date. CM provided Patient with the PCP Brochure and left a message with CM for tomorrow (today is Thursday) to see if CM Business Machine Mechanic can assist. Patient is also looking for a [employer]. CM will follow.
--- NOTE | 2024-07-10 10:16 | P.PNIM_ITS ---
Subjective Subjective Date of Service: 07/10/24 Review of Systems Follow up submassive PE off oxygen, no hypoxia s/p thrombectomy Physical Exam 2 Vital Signs: Vital Signs: Last Vital Signs Temp 98.7 F 07/10/24 07:49 Pulse 82 07/10/24 07:49 Resp 20 07/10/24 07:49 BP 120/68 07/10/24 07:49 Pulse Ox 97 07/10/24 07:49 O2 Del Method Room Air 07/10/24 07:49 O2 Flow Rate 2 07/08/24 16:20 BMI result Body Mass Index 34.2 Appearing in no acute distress lung sounds are clear to auscultation heart regular rate rhythm, clear S1, S2 positive bowel sounds, abdomen is soft, nontender neuro patient is alert x3, no focal deficits Objective Data Active Medications Acetaminophen (Acetaminophen 325 Mg Tablet) 650 mg PO Q6H PRN PRN Reason: Pain, Mild (Pain Scale 1-3) Last Admin: 07/09/24 11:59 Dose: 650 mg Documented By: JUDE Apixaban (Apixaban 5 Mg Tablet) 10 mg PO BID PEPE Stop: 07/15/24 21:01 Last Admin: 07/10/24 07:39 Dose: 10 mg Documented By: DEREK Morphine Sulfate (Morphine Sulfate 4 Mg/Ml Cartridge) 4 mg IVPUSH Q2H PRN; Protocol PRN Reason: Pain, Severe (Pain Scale 7-10) Oxycodone HCl (Oxycodone Hcl Immed Release 5 Mg Tablet) 5 mg PO Q4H PRN PRN Reason: Pain, Moderate(Pain Scale 4-6) Last Admin: 07/09/24 20:38 Dose: 5 mg Documented By: YARY Labs 07/09/24 05:22 07/09/24 05:22 Labs: Laboratory Results - last 24 hr 07/09/24 21:35 POC Glucose 90 Assessment and Plan (1) Acute saddle pulmonary embolism: Status: Acute (2) Left leg DVT: Status: Acute Plan 39-year-old woman admitted to the ICU for saddle emboli hypoxia Acute hypoxic respiratory failure secondary to acute saddle pulmonary embolism with right heart strain. Resolved Recent car travel 2 months ago No longer on oxygen Thrombophilia workup outpatient Initially started on IV heparin, switched to apixaban Underwent mechanical thrombectomy of pulmonary embolism 07/08/2024 Left lower extremity DVT Continue apixaban Elevated troponin Likely secondary to saddle emboli Syncope Likely secondary to submassive PE Head CT with no acute intracranial findings DVT prophylaxis with Xarelto Quality Stroke Does the patient have a stroke diagnosis?: No VTE Prior VTE?: No VTE Risk Level:: Medical - moderate - high VTE Device Contraindication: N/A - Device Ordered VTE Drug Contraindication: N/A - Med Ordered
[2024-07-10 11:55] VITALS: BP 110/55; PULSE 77; RESP 14; TEMP 36.9; O2SAT 98
[2024-07-10 15:07] LABS: ACT 120 Celite s (79-173)
[2024-07-10 15:07] LABS: ACT 324 Celite s (79-173)
[2024-07-10 15:57] VITALS: BP 112/64; PULSE 82; RESP 16; TEMP 36.5; O2SAT 97
[2024-07-10 20:00] VITALS: BP 114/56; PULSE 86; RESP 17; TEMP 36.8; O2SAT 99
[2024-07-10 23:52] VITALS: BP 134/73; PULSE 88; RESP 16; TEMP 36.2; O2SAT 97
[2024-07-11] MEDS: Acetaminophen 325 MG TABLET 650 MG PO (01:14)
[2024-07-11 03:50] VITALS: BP 110/63; PULSE 70; RESP 16; TEMP 36.4; O2SAT 99
[2024-07-11 06:00] VITALS: BMI 34.7
--- NOTE | 2024-07-11 07:49 | P.DS_ITS ---
DS: Providers Provider Date of Service: 07/11/24 Date of admission: 07/08/24 01:00 Date of discharge: 07/11/24 Primary care physician: Unknown Physician Consults: 07/08/24 06:19 Consult to Vascular Surgery Routine Consulting Provider: [facility] Vascular Services Reason for consultation: PE DS: Diagnosis Discharge Diagnosis (1) Acute saddle pulmonary embolism: Status: Acute (2) Left leg DVT: Status: Acute DS: Summary Hospital Course Hospital Course: History and physical as per admitting provider. 39-year-old female with a history of pneumonia about a month ago, had travel by car for approximately 18 hours straight. ?Presents to the emergency room complaints of shortness of breath, chest tightness and cough, palpitations for the past 24 hours.? She has also had some bilateral rib discomfort and dry cough, noted to become significantly short of breath when coming out of the shower and developed a syncopal episode. ?Patient does not recall and subsequent events or if there was any head trauma although she denied headache or neck pain. In the emergency room the patient was noted to be tachycardic, tachypneic and at some point hypoxic with O2 sat of 84% with ambulation.? Her laboratory workup was overall unremarkable with exception of troponin of 400.? She is not .? Chest x- ray shows findings concerning for infiltrates however the patient has no fever and no white count.? She did have a CT angiogram of the chest which shows saddle pulmonary embolisms with large bilateral PE burden and evidence of right heart strain.? Minimal subpleural opacities in the right lower lobe possibly related to ischemia in the setting of PE. ?Ultrasound of the left lower extremity revealed a deep vein thrombi from the left femoral into the popliteal and peroneal veins.? No DVT on the right leg.? EKG shows sinus tachycardia rate of 115 beats per minute.? There is no ST elevations or depressions noted.? QT 316 ms no comparison. Patient was given full-dose Lovenox, case was discussed with Dr. Dyson (vascular surgeon) plan for clot retrieval is planned in the morning and request to start heparin without a load was made, this was started in the emergency room. 39-year-old woman treated for acute hypoxic respiratory failure secondary to saddle pulmonary embolus with right heart strain and DVT. Patient did have episode of syncope at home secondary to submassive PE. The patient underwent mechanical thrombectomy on 07/08/2024. Initially treated with IV heparin and switch to apixaban. Patient will need to find a primary care provider for management of medication outpatient. She will be on this medication for 6 months at least. She should also have a coagulopathy workup outpatient. She was noted to have some elevated troponins that were likely secondary to the saddle emboli. She has had no noted hypoxia, she was on room air. Plan is for discharge home. Time Attestation Discharge Coordination Time (in mins): 42 Quality: Safe Use of Opioids Does Pt have an Active Cancer Diagnosis on the Problem List?: No Quality: Stroke Does the patient have a stroke diagnosis?: No Physical Exam Vital Signs: Vital Signs: Last Vital Signs Temp 97.5 F 07/11/24 03:50 Pulse 70 07/11/24 03:50 Resp 16 07/11/24 03:50 BP 110/63 07/11/24 03:50 Pulse Ox 99 07/11/24 03:50 O2 Del Method Room Air 07/11/24 03:50 O2 Flow Rate 2 07/08/24 16:20 BMI result Body Mass Index 34.7 Appearing in no acute distress head is normocephalic atraumatic eyes pupils are PERRLA sclera is anicteric mouth throat mucous membranes are intact and moist neck is supple no lymphadenopathy, no JVD noted lung sounds are clear to auscultation heart regular rate rhythm, clear S1, S2 positive bowel sounds, abdomen is soft, nontender neuro patient is alert x3, no focal deficits DS: Data Data Completed and Pending Labs on day of discharge: Laboratory Results - last 24 hr 07/08/24 07/08/24 14:53 15:02 Activated Clotting Time 120 324 H Discharge Plan Discharge Anticipated Discharge Date/Time: 07/11/24 07:38 Patient Disposition: Home, Self-Care Discharge Diagnosis: Saddle embolus DVT Referrals: Jodi Driscoll MD [Physician] - 1 Month (Follow up for coagulopathy workup) Discharge Medications: New apixaban 5 mg Tablet 10 mg PO BID Qty: 42 3RF Rx Instructions: 10 mg BID until 07/15/24 then 5mg BID Discharge Orders: Discharge Order (Routine); Ordered 07/11/24 Ordered By: Sho Martínez Diet: Advance to usual diet Activity on Discharge: As tolerated Stand Alone Forms: Patient Portal Discharge page Print Language: Citizen Of [place] Care Plan Goals: Take Eliquis 10 mg twice daily until 07/15/2024 then 5 mg twice daily for 6 months, follow up with the primary care provider for management of this medication Health Concerns: Saddle embolus DVT Plan of Treatment: Follow-up with primary care provider as needed Take all medications as prescribed Assessment: See discharge summary
[2024-07-11 07:55] VITALS: BP 103/61; PULSE 70; RESP 20; TEMP 36.7; O2SAT 98
[2024-07-11] MEDS: Apixaban 5 MG TABLET 10 MG PO (08:11)
--- NOTE | 2024-07-11 08:40 | MHC.CM.PN ---
Pt has been medically cleared for DC, she will go home via [facility], plan is self care.
== END 2024-07-11 11:06 | disposition home or self-care (01) | DRG 134 ==
LOC: HO.ED 07-08 00:59 → HO.EDOVER 07-08 01:14 → HO.ICU 07-08 01:16 → HO.IMC 07-09 13:45
PROVIDERS: Surgery Vascular Surgery; Admitting Provider Physician Assistant Medical; Emergency Provider Emergency Medicine; Visit Provider Nurse Practitioner Acute Care
PROC: 02CR3ZZ Extirpation of Matter from Left Pulmonary Artery, Percutaneous Approach (ICD-10-PCS; principal; 2024-07-08 14:00)
DX: I26.02 Saddle embolus of pulmonary artery with acute cor pulmonale (principal); J96.01 Acute respiratory failure with hypoxia; D62 Acute posthemorrhagic anemia; I82.412 Acute embolism and thrombosis of left femoral vein; I82.432 Acute embolism and thrombosis of left popliteal vein; I82.452 Acute embolism and thrombosis of left peroneal vein
CPT/HCPCS: 36415; 37187; 70450; 71046; 71275; 76942; 80053; 81001; 81025; 82947; 83880; 84484; 85025; 85347; 85379; 85610; 85730; 93005; 93306; 93970; 99152; 99153; 99285; C1757; C1769; C1887; C1894; J1644; J1650; J2250; J2310; J3010; Q9967

== ENCOUNTER → 2024-07-07 21:24 | Outpatient (BNV) | payer OTHER, SELFPAY | PROVIDERS: Admitting Provider Physician Assistant Medical; Emergency Provider Emergency Medicine; Visit Provider Internal Medicine Cardiovascular Disease | DX: R00.0 Tachycardia, unspecified (principal) | CPT/HCPCS: 93010 ==

== ENCOUNTER → 2024-07-07 21:47 | Outpatient (BNV) | payer OTHER, SELFPAY | PROVIDERS: Emergency Provider Emergency Medicine; Visit Provider Radiology Diagnostic Radiology | DX: I26.92 Saddle embolus of pulmonary artery without acute cor pulmonale (principal); I82.412 Acute embolism and thrombosis of left femoral vein; I82.432 Acute embolism and thrombosis of left popliteal vein; R06.02 Shortness of breath; R05.9 Cough, unspecified; I82.452 Acute embolism and thrombosis of left peroneal vein | CPT/HCPCS: 71046; 71275; 93970 ==

== ENCOUNTER 2024-07-08 01:00 | Outpatient (BNV) | payer OTHER, SELFPAY | END 2024-07-08 01:02 | PROVIDERS: Admitting Provider Physician Assistant Medical; Emergency Provider Emergency Medicine; Visit Provider Specialist | DX: R55 Syncope and collapse (principal) | CPT/HCPCS: 70450 ==

== ENCOUNTER 2024-07-08 01:00 | Outpatient (BNV) | payer OTHER, SELFPAY | END 2024-07-08 07:00 | PROVIDERS: Admitting Provider Physician Assistant Medical; Emergency Provider Emergency Medicine; Visit Provider Internal Medicine Cardiovascular Disease | DX: I26.09 Other pulmonary embolism with acute cor pulmonale (principal); I27.20 Pulmonary hypertension, unspecified | CPT/HCPCS: 93306 ==

== ENCOUNTER → 2024-07-08 01:00 | Outpatient (BNV) | payer OTHER, SELFPAY | PROVIDERS: Admitting Provider Physician Assistant Medical; Emergency Provider Emergency Medicine; Visit Provider Physician Assistant Medical | DX: I82.402 Acute embolism and thrombosis of unspecified deep veins of left lower extremity (principal); I26.92 Saddle embolus of pulmonary artery without acute cor pulmonale | CPT/HCPCS: 99291 ==

== ENCOUNTER → 2024-07-08 01:00 | Outpatient (BNV) | payer OTHER, SELFPAY | PROVIDERS: Admitting Provider Physician Assistant Medical; Emergency Provider Emergency Medicine; Visit Provider Nurse Practitioner Acute Care | DX: I26.92 Saddle embolus of pulmonary artery without acute cor pulmonale (principal); I82.402 Acute embolism and thrombosis of unspecified deep veins of left lower extremity | CPT/HCPCS: 99232; 99499 ==

== ENCOUNTER → 2024-07-08 01:00 | Outpatient (BNV) | payer OTHER, SELFPAY | PROVIDERS: Admitting Provider Physician Assistant Medical; Emergency Provider Emergency Medicine; Visit Provider Surgery Vascular Surgery | DX: I26.92 Saddle embolus of pulmonary artery without acute cor pulmonale (principal) | CPT/HCPCS: 36013; 37184; 75825; 76937; 99152; 99222 ==

== ENCOUNTER 2024-07-21 13:48 | Outpatient (AMB) | payer OTHER, SELFPAY ==
--- NOTE | 2024-07-21 13:53 | MHC.OFFVIS ---
Intake Visit Reasons: 2 week post op PE 07/08/2024 Intake Note: Patient presents for 2 week post op s/p PE on July 08, 2024. Patient states she feels dizzy sometimes, headaches come and go. Accompanied by: Self / Same As Patient Allergies No Known Allergies Allergy (Verified 07/21/24 13:55) HPI HPI 2 week post op PE 07/08/2024: Details: The patient is a 39-year-old female presenting for follow-up after pulmonary embolectomy. She underwent the procedure two weeks ago for a large pulmonary embolism, which has led to improved respiratory function. Post-operatively, she is taking Eliquis and is scheduled to be on this medication. She has experienced dizziness, possibly exacerbated by anxiety or previous pneumonia, but has no known allergies and has not reported any other recent illnesses. She now presents for routine postprocedure follow-up [facility] Social History Household Members: Children Housing: Apartment Do you presently have visiting nurse or other home services: No Patient Tobacco Use Status: Never used Tobacco service: No Review of Systems Const All systems reviewed & are unremarkable except as noted in HPI and below Reports no additional complaints ENT Reports Normal hearing present Card Denies chest pain, Denies chest pain at rest, Denies chest pain with activity and Denies pedal edema Resp Denies cough GI Denies abdominal pain Musc Denies abnormal gait, Denies muscle cramps and Denies radiating pain into limb Skin/Breast Denies skin ulcer and Denies wounds Neuro Reports Normal hearing present and Denies abnormal gait Psych Reports no additional complaints Physical Exam Const General: cooperative, healthy appearing and comfortable Orientation/consciousness: oriented to person, oriented to place and oriented to time HEENT Head: Yes normal to inspection Neck Neck: Yes normal visual inspection Carotids: no bruits Chest Chest palpation & inspection: normal inspection of the chest Resp Effort & Inspection: normal respiratory effort and able to speak in complete sentences Auscultation: clear to auscultation bilaterally, no crackles, no rales, no rhonchi and no wheezes Cardio Rate: regular rate Rhythm: regular rhythm Heart sounds: S1 normal heart sound present and S2 normal heart sound present Bruits: no carotid bruits Peripheral pulses: Peripheral pulses 2+ throughout GI Inspection: Yes normal to inspection Skin Wounds: no wounds Hair: normal Neuro General: oriented to person, oriented to place and oriented to time Cranial nerves: Yes CN's II-XII intact bilaterally and Yes Normal hearing present Cognition (Neuro): normal cognition Motor exam (neuro): 5/5 motor strength present throughout Extrem Other: venous exam: No significant superficial varicosities or spider telangiectasias, minimal edema General: No clubbing, No cyanosis and No edema Psych Appearance: grossly normal Mental Status: mental status grossly normal Speech and movement: Normal speech and movement present Assessment & Plan Assessment & Plan (1) Pulmonary embolism: Code(s): I26.99 - Other pulmonary embolism without acute cor pulmonale Category: Medical Qualifiers: Pulmonary embolism type: unspecified Chronicity: acute Acute cor pulmonale presence: with acute cor pulmonale Qualified Code(s): I26.09 - Other pulmonary embolism with acute cor pulmonale Plan: During the visit, I explained to the patient the necessity of continuing on Eliquis for six months post-pulmonary embolectomy and outlined the plan for today, which includes removing the groin stitch. Discussed at length were the importance of preventing secondary thromboembolic events through medication and mobility precautions on long trips. The patient expressed concerns about delay in obtaining a primary care provider, and I emphasized the importance of these appointments for her continued recovery and monitoring. We discussed with her that follow-up with primary care is crucial despite the current scheduling challenges. She will follow up with us on an as-needed basis. Thank you for allowing us to assist in her care. If there are any questions or concerns please do not hesitate to contact us Coding Level of Care Code Est Pt Level 4 (62858) Diagnoses Acute pulmonary embolism with acute cor pulmonale, unspecified pulmonary embolism type I26.09 Pulmonary embolism type: unspecified Chronicity: acute Acute cor pulmonale presence: with acute cor pulmonale
--- OUTSIDE RECORDS SUMMARY | 2024-07-21 16:41 | XMS_ITS | Clinical Summary ---
[facility] Address [address] [place] [address] Phone Care Team Providers Care Quality Control Coordinator Name Role Phone Elva Orona MD Primary Care Provider [phone] Social History Tobacco Use Types Packs/Day Years Used Date Smoking Tobacco: Never Assessed Comments Unknown Sex and Gender Information Value Date Recorded Sex Assigned at Not on file Legal Sex Female 1:06 PM EDT Gender Identity Not on file Sexual Orientation Not on file Plan of Treatment Upcoming Encounters Date Type Department Care Team (Late st Contact Info) Description 02/13/2025 3:30 PM EST Office Visit Internal Medicine - [address] [phone] Elva Orona MD [address] [place] [address] Health Maintenance Due Date Last Done Comments Breast Cancer Screening 1984 DTaP,Tdap,and Td Vaccines (1 - Tdap) 2003 Hepatitis B Vaccines (1 of 3 - 19+ 3-dose series) 2003 Cervical Cancer Screening: P ap Smear 2005 COVID-19 Vaccine ( - 2023-2 5 season) 2023 Influenza Vaccine (#1) 2023 Depression Screening 07/06/2024 HIV Screening 07/06/2024 Hepatitis C Screening 07/06/2024 Social Influencers of Health Screening 07/06/2024 HIB Vaccines Aged Out No longer eligi ble based on patient's age to complete this topic HPV Vaccines Aged Out No longer eligi ble based on patient's age to complete this topic Hepatitis A Vaccines Aged Out No long er eligible based on patient's age to complete this topic IPV Vaccines Aged Out No longer eligi ble based on patient's age to complete this topic MMR Vaccines Aged Out No longer eligi ble based on patient's age to complete this topic Meningococcal ACWY Vaccine Aged Out N o longer eligible based on patient's age to complete this topic Meningococcal B Vaccine Aged Out No l onger eligible based on patient's age to complete this topic Pneumococcal Vaccine: Pediat rics (0 to 5 Years) and At-Risk Patients (6 to 64 Years) Aged Out No longer eligible b ased on patient's age to complete this topic RSV Immunization Patients Un mariza 20 months Aged Out No longer eligible b ased on patient's age to complete this topic Varicella Vaccines Aged Out No longer eligible based on patient's age to complete this topic Insurance [facility] Care Teams Quality Control Coordinator Relationship Specialty Start Date End Date Elva Orona MD [address] [place] [address] PCP - General Internal Medicine 07/05/24
== END 2024-07-21 14:20 | disposition home or self-care (01) ==
LOC: HO.HVS 13:49
PROVIDERS: Visit Provider Surgery Vascular Surgery
DX: I26.09 Other pulmonary embolism with acute cor pulmonale (principal)
CPT/HCPCS: 99214

== ENCOUNTER → 2024-07-21 13:48 | Outpatient (BNVA) | payer OTHER, SELFPAY | PROVIDERS: Visit Provider Surgery Vascular Surgery | DX: I26.09 Other pulmonary embolism with acute cor pulmonale (principal) | CPT/HCPCS: 99212 ==

== ENCOUNTER → 2024-08-19 13:40 | Outpatient (BNV) | payer OTHER, SELFPAY | PROVIDERS: Visit Provider Internal Medicine Medical Oncology | DX: I26.99 Other pulmonary embolism without acute cor pulmonale (principal) | CPT/HCPCS: 99204 ==

== ENCOUNTER 2024-08-23 20:49 | Emergency (ER) | payer OTHER, SELFPAY ==
[2024-08-23 21:01] VITALS: BP 120/60; PULSE 66; RESP 20; TEMP 37; O2SAT 99; BMI 36.3
[2024-08-24] VITALS: BP 113/81; PULSE 63; RESP 16; TEMP 37.1; O2SAT 97
--- NOTE | 2024-08-24 00:39 | PC.NURSE ---
Pt sitting up on side of stretcher, comfortable at this time. Awaiting provider.
--- NOTE | 2024-08-24 01:07 | ED_ITS ---
HPI - General Adult General Chief complaint: Eye Problems Stated complaint: eye irritation, burning, itchy Time Seen by Provider: 08/24/24 00:21 Source: patient Limitations: no limitations History of Present Illness ED Provider: Katie Guerrero PA-C HPI narrative: 39-year-old female with a history of PE and DVT on apixaban, hypothyroidism who presents with bilateral eye irritation for 2-3 days. Patient has been noting dry crust formation over her lids when she wakes in the morning. Her eyes have been itchy and red. Her children do not have similar symptoms, no and a has had viral syndrome or a fever. The patient does not use contact lenses she would not diabetic. There was no potential foreign body, no projectile. Related Data Previous Rx's ?Medication ?Instructions ?Recorded apixaban 5 mg tablet 10 mg (2 x 5 mg) PO BID #42 tabs 07/11/24 cetirizine 0.24 % eye drops in a 1 drp ophthalmic (eye) BID PRN 08/24/24 dropperette itching #30 ea erythromycin 5 mg/gram (0.5 %) eye 0.5 inch ophthalmic (eye) QID 5 08/24/24 ointment days #3.5 grams Allergies Allergy/AdvReac Type Severity Reaction Status Date / Time No Known Allergies Allergy Verified 08/23/24 21:03 Review of Systems Review of Systems: Yes all other systems are reviewed and are negative Constitutional: Constitutional: Denies fatigue and Denies fever(s) Eyes: Eyes: Reports eye discharge and Reports itchy eyes Endocrine: Endocrine: Denies fatigue Allergic/Immunologic: Allergic/Immunologic: Reports itchy eyes PMFSH Past Medical History Attestation statement: The following information was validated with the patient. Family History Family History (Updated 08/19/24 @ 14:30 by Karen Todd) Other No significant family history Social History Social History (Updated 08/19/24 @ 14:09 by Karen Todd) Household Members: Children Housing: Apartment Are you a primary primary care physician to a significant other at home: Yes Do you presently have visiting nurse or other home services: No Patient Tobacco Use Status: Never used Tobacco Smoked in Last 30 Days: No e-Cigarette/Vaping Use: Never Used Second Hand Smoke Exposure: No Use of substances other than those prescribed or required for medical reasons: No Advance Directives: No Advance Directives Information Provided: Yes Do you have a plan to hurt others: No Plan service: No Current occupational status: employed Current occupational exposures/hazards: No Physical Exam ED Vital Signs: Vital Signs - 24 hr 08/23/24 21:01 08/24/24 00:00 Temperature 98.6 F 98.8 F Pulse Rate 66 63 Respiratory Rate 20 16 Blood Pressure 120/60 113/81 Pulse Oximetry 99 97 Oxygen Delivery Method Room Air Room Air BMI result Body Mass Index 36.3 Const Other: Alert well-appearing Orientation/consciousness: patient oriented x3 Eyes Other: Bilateral bulbar conjunctiva injected, palpable conjunctiva not edematous, Resp Effort & Inspection: normal respiratory effort Cardio Other: Normal peripheral perfusion Skin Other: Warm dry no rash Neuro General: patient oriented x3, gait normal, no focal motor deficits and CN's II- XI intact bilaterally Psych Other: Cooperative Medical Decision Making Medical Decision Making MDM Narrative: 39-year-old female with a history of PE and DVT on apixaban, hypothyroidism who presents with bilateral eye irritation for 2-3 days. Patient has been noting dry crust formation over her lids when she wakes in the morning. Her eyes have been itchy and red. Her children do not have similar symptoms, no and a has had viral syndrome or a fever. The patient does not use contact lenses she would not diabetic. There was no potential foreign body, no projectile. No relevant chronic issues History: Per patient I have considered the following differential diagnoses: Bacterial conjunctivitis, allergic conjunctivitis, corneal abrasion/ulceration, corneal foreign body Plan: I believe this to be allergic conjunctivitis, it is bilateral, her eyes are itchy there was no pain. The patient did not have exposure to any caustic agent, there was no projectile. We will be treating with antibiotic ointment and Zyrtec drops. Discharge Plan Discharge Clinical Impression: Acute allergic conjunctivitis of both eyes Patient Disposition: Home, Self-Care Instructions: Conjunctivitis (ED) Additional Instructions: You are being treated for allergic conjunctivitis. See home care instructions. Use the erythromycin ointment as directed, use the cetirizine drops as directed. Follow up with your primary care provider as needed. Prescriptions: New cetirizine 0.24 % dropperette 1 drp ophthalmic (eye) BID PRN (Reason: itching) Qty: 30 0RF erythromycin 5 mg/gram (0.5 %) ointment 0.5 inch ophthalmic (eye) QID 5 Days Qty: 3.5 0RF No Action apixaban 5 mg Tablet 10 mg PO BID Qty: 42 3RF Rx Instructions: 10 mg BID until 07/15/24 then 5mg BID Print Language: Martiniquais
[2024-08-24] MEDS: Erythromycin Base 0.5% Oph Oin 1 GM TUBE 1 CM EYE-BOTH (01:14)
[2024-08-24 01:21] VITALS: BP 120/81; PULSE 65; RESP 18; TEMP 36.8; O2SAT 99
== END 2024-08-24 01:22 | disposition home or self-care (01) ==
PROVIDERS: Emergency Provider Emergency Medicine
DX: H10.33 Unspecified acute conjunctivitis, bilateral (principal); H57.13 Ocular pain, bilateral
CPT/HCPCS: 99284

== ENCOUNTER 2024-12-20 15:33 | Outpatient (AMB) | payer OTHER, SELFPAY ==
--- NOTE | 2024-12-20 15:49 | A.OFFVIS_ITS ---
Vital Signs 12/20/24 15:50 Height 5 ft 4 in Weight 218 lb BMI 37.4 BP 122/78 Blood Pressure Location Rt brachial Position Sitting Pulse 57 Pulse Source Pulse Oximeter Pulse Oximetry (%) 99 Oxygen Delivery Method Room Air Intake Visit Reasons: Pulmonary embolism Allergies No Known Allergies Allergy (Verified 12/20/24 15:52) HPI HPI Pulmonary embolism: Details: Marilynn is a pleasant 39-year-old female, never smoker, with underlying h/o provoked PE and DVT 06/2024 and hypothyroidism. She was referred by PCP for pulmonary evaluation. The DVT occurred in June after an 18-hour drive, starting in the left leg and requiring hospitalization for clot removal and initiation of Eliquis therapy. CT angiogram of the chest which shows saddle pulmonary embolisms with large bilateral PE burden and evidence of right heart strain. Minimal subpleural opacities in the right lower lobe possibly related to ischemia in the setting of PE. Ultrasound of the left lower extremity revealed a deep vein thrombi from the left femoral into the popliteal and peroneal veins. The patient underwent mechanical thrombectomy on 07/08/[address] Dyson. Initially treated with IV heparin and switch to apixaban. Recommendations made for Eliquis for 6 months at least. The patient was referred to a automatic developer, Sue Orr, evaluated in August, reportedly hypercoaguable workup unremarkable. Unfortunately, the patient has been off Eliquis for a month due to concerns about fertility, as she is trying to conceive. Previously attempted Lovenox however she reports insurance issues as she is not currently . The patient was informed about the importance of continuing anticoagulation therapy to prevent recurrence, especially given the severity of the initial clot. She is under the care of cardiology, unsure of provider name, possible [facility] and will have echo scheduled 01/03/25. She reportedly had repeat US of LLE which revealed resolution of DVT. She denies repeat CTA to assess for resolution of PE. She reports ongoing shortness of breath when climbing stairs, which she attributes to obesity that has been present prior to the PE. Denies cough, hemoptysis, chest pain, wheezing or chest tightness. The patient denies any history of asthma, smoking, or exposure to secondhand smoke. [facility] Family History (Updated 08/19/24 @ 14:30 by Karen Todd) Other No significant family history Social History Household Members: Children Housing: Apartment Are you a primary overnight caregiver to a significant other at home: Yes Do you presently have visiting nurse or other home services: No Patient Tobacco Use Status: Never used Tobacco e-Cigarette/Vaping Use: Never Used Second Hand Smoke Exposure: No service: No Current occupational status: employed Current occupational exposures/hazards: No Review of Systems Const Denies chills, Denies excessive sweating, Denies fever(s), Denies headache(s) and Denies night sweats Eyes Denies dry eyes, Denies irritation and Denies itchy eyes ENT Reports Normal hearing present, Denies headache(s), Denies nasal congestion, Denies nasal discharge, Denies post nasal drip and Denies sore throat Card Denies chest pain, Denies chest pain at rest, Denies chest pain with activity, Denies claudication, Denies leg edema, Denies orthopnea and Denies paroxysmal nocturnal dyspnea Resp Denies chest congestion, Denies cough, Denies excessive phlegm production, Denies pain on inspiration, Denies pain with cough, Denies stridor and Denies wheezing Musc Denies myalgias Neuro Reports Normal hearing present and Denies headache(s) Endo Denies excessive sweating Surjit/Lymph Denies lymphadenopathy Aller/Immun Denies itchy eyes, Denies seasonal rhinorrhea and Denies wheezing Physical Exam Vital Signs: Last Vital Signs Pulse 57 12/20/24 15:50 BP 122/78 12/20/24 15:50 Pulse Ox 99 12/20/24 15:50 Oxygen Delivery Method Room Air 12/20/24 15:50 BMI result Body Mass Index 37.4 Const General: cooperative, healthy appearing, comfortable, no acute distress, well developed and alert Nutritional Appearance: obese Orientation/consciousness: patient oriented x3 Limitations: no limitations HEENT Head: Yes normal to inspection, Yes normocephalic and Yes atraumatic Ears: hearing grossly normal bilaterally and external ears normal Eyes General: appearance normal, both eyes and all related structures Eyelids: Yes eyelids normal Sclerae: sclerae normal EOM: EOMs intact bilaterally Neck Neck: Yes normal visual inspection and Yes no lymphadenopathy Lymphatic: no lymphadenopathy noted Chest Chest palpation & inspection: normal inspection of the chest Resp Effort & Inspection: normal respiratory effort, able to speak in complete sentences, no audible wheezes, no cough, no stridor, not tachypneic, no tripod positioning and no use of accessory muscles Auscultation: clear to auscultation bilaterally Cardio Jugular venous distension: no JVD Rate: regular rate Rhythm: regular rhythm Skin Other: warm, dry General skin exam: no rashes or lesions noted Neuro General: patient oriented x3 Cranial nerves: Yes Normal hearing present Cognition (Neuro): normal cognition Gait exam (Neuro): Normal gait present Extrem General: Yes normal to inspection, Yes capillary refill normal, Yes no clubbing, cyanosis or edema and Yes no pedal edema Psych Appearance: grossly normal and well kempt Speech and movement: Normal speech and movement present and Clear speech present Affect: normal affect Attitude: cooperative Thought process: Normal thought process present Thought content: Normal thought content present Insight: Good insight present (Psych) Judgement: Good judgement present (Psych) Results Reviewed Results Reviewed: [place] [address] CT Scan Report Signed with Addenda Patient: Marilynn Batista MR#: [id number] : 1985 Acct:[id number] Age/Sex: 39 / F ADM Date: 07/07/24 Loc: .ED Attending Dr: Ordering Physician: Abigail Fitzgerald MD Date of Service: 07/07/24 Procedure(s): CT angio chest PE protocol Accession Number(s): [id number] cc: Abigail Fitzgerald MD; Physician,Unknown ~ Report Number: [id number]: Total DLP = 288.00 mGy-cm ADDENDUM This document has been electronically signed by: Ricardo Amaro MD on 07/07/2024 23:26:55 ADDENDUM: This report was discussed with Abigail Fitzgerald on Jul 07, 2024 23:29:00 EDT. This document has been electronically signed by: Pratima Cruz on 07/07/2024 23:29:20 Addendum Dictated By: Ricardo Amaro MD Addendum Signed By: <Electronically signed by Ricardo Amaro MD in OV> 07/07/24 [id number] Addendum Cosigned By: DD/ TD/TT: 07/07/24 CLINICAL HISTORY: R CP, tachycardia, + syncope, SOB CT angiography chest using contrast. 3-D postprocessing Comparison: CR - XR CHEST 2V - 07/07/24 21:49 EDT Findings: Saddle pulmonary embolism present with thrombus extending into the right upper lobe and right lower lobe pulmonary arteries. There also appears to be slight extension into segmental right upper lobe and right lower lobe pulmonary arterial branches. There is also extension of filling defects into the left upper lobe, lingular, and left lower lobe pulmonary arteries with additional extension into segmental pulmonary arterial branches throughout the left lung as well as subsegmental left lower lobe pulmonary arterial branches No thoracic aorta aneurysm. Heart size within normal limits. Asymmetric enlargement of the right ventricle present Minimal, patchy subpleural right lower lobe opacities are present. No focal consolidation identified within the left lung. No pneumothorax or pleural effusion. Visualized upper abdomen unremarkable. No acute fractures. Impression: 1. Saddle pulmonary embolism with a large bilateral PE burden as described above. There are findings suggesting right heart strain. 2. Minimal subpleural opacities present at the right lower lobe, possibly related to ischemia given the presence of pulmonary embolism. 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 The patient is advised to restart Eliquis until further evaluation by the automatic developer, Dr. Orr, due to the significant risk of recurrence. She was agreeable to schedule a follow up with Dr. Orr as soon as possible to discuss the duration of anticoagulation therapy and potential switch to Lovenox if occurs. A repeat CTA chest is planned to ensure resolution of the embolism and assess for any residual scarring/chronic PE. A pulmonary function test is recommended to evaluate lung function due to reported dyspnea on exertion. She has upcoming echo to assess previously noted right heart strain from PE. Will attempt to obtain from [facility]. All questions were answered and patient is in agreement of plan. Will follow up to review results or CTA or sooner if needed. Orders: Orders CT angio chest PE protocol Today I26.09 - Other pulmonary embolism with acute cor pulmonale PFT pulmonary function test Today R06.09 - Other forms of dyspnea Coding Level of Care Code New Pt Level 4 (52184) Complex EM visit Add On G2211 Diagnoses Acute pulmonary embolism with acute cor pulmonale, unspecified pulmonary embolism type I26.09 Acute cor pulmonale presence: with acute cor pulmonale Chronicity: acute Pulmonary embolism type: unspecified Dyspnea on exertion R06.09
[2024-12-20 15:50] VITALS: BP 122/78; PULSE 57; O2SAT 99; BMI 37.4
--- OUTSIDE RECORDS SUMMARY | 2024-12-20 17:43 | XMS_ITS | Clinical Summary ---
Author Organization [facility] [address] [facility] Building Address [address] [place], [place] Phone Care Team Providers Care Advanced Analytics Associate Name Role Phone Elva Orona MD Primary Care Provider Allergies No known active allergies Medications Eliquis 5 mg tablet Take 1 tablet (5 mg total) by mouth 2 (two) times a day. 180 each 1 09/06/2024 Active Active Problems Problem Noted Date Diagnosed Date Pulmonary hypertension ([facility] V24, [facility] V28 ) 09/23/2024 Acute venous embolism and th rombosis of deep vessels of distal lower extremity ([facility] V24, [facility] V28) 09/20/2024 Dizziness 09/20/2024 Acute saddle pulmonary embol ism with acute cor pulmonale ([facility] V24, [facility] V28) 09/20/2024 Encounters Date Type Department Care Team Description 12/20/2024 Telephone Internal Medicine - [address] [phone] Elva Orona MD 12/07/2024 11:00 AM EDT Office Visit Internal Medicine - [address] [phone] Elva Orona MD Pain of right hip (Primary Dx); Chronic saddle pulmonary embolism, unspecified whether acute cor pulmonale present (CMS/HCC V24, CMS/HCC V28); Pulmonary hypertension (CMS/HCC V24, CMS/HCC V28); Anemia, unspecified type; Current use of watermaster anticoagulation; Dyspnea, unspecified type 10/10/2024 12:27 PM EDT - 10/10/2024 11:59 PM EDT Hospital Encounter Ultrasound [facility] [address] [place] [address] Acute venous embolism and thrombosis of deep vessels of distal end of left lower extremity (CMS/[facility] V24, CMS/[facility] V28) Discharge Disposition: Home or Self Care 09/23/2024 1:00 PM EDT Office Visit [facility] - [address] [place] [address] Анна Medrano MD Acute saddle pulmonary embolism with acute cor pulmonale (CMS/[facility] V24, CMS/[facility] V28) (Primary Dx); Acute venous embolism and thrombosis of deep vessels of distal end of left lower extremity (CMS/[facility] V24, CMS/HCC V28); Dizziness; Pulmonary hypertension (CMS/[facility] V24, CMS/HCC V28) from Last 3 Months Surgical History Surgery Date Site/Laterality Comments EMBOLECTOMY 07/08/2024 Medical History Medical History Date Comments Blurry vision, bilateral Weakness Numbness in both legs Social History Tobacco Use Types Packs/Day Years Used Date Smoking Tobacco: Never Passive Smoke Exposure: Never Smokeless Tobacco: Never Tobacco Cessation:Counseling Given: Not Answered Alcohol Use Standard Drinks/Week Comments Not Currently 0 (1 standard drink = 0.6 oz pur e alcohol) Housing Instability Answer Date Recorde d Are you worried that in the next 2 months you may not have stable housing? Patient declined 09/03/2024 Food Access & Nutrition Answer Date Rec orded Do you have access to a vari ety of food including fruits and vegetables? Yes 09/03/2024 Access to Healthcare Answer Date Record ed Within the last 3 months, ho w many times did you visit the emergency department for your medical care? 2 09/03/2024 Health Literacy Answer Date Recorded How often do you need to hav e someone help you when you read instructions, pamphlets, or other written material from your doctor or pharmacy? Rarely 09/03/2024 Caregiver: How often do you need to have someone help you when you read instructions, pamphlets, or other written material from your doctor or pharmacy? Not on file 09/03/2024 Financial Risk Answer Date Recorded How hard is it for you to pa y for the very basics like food, housing, medical care, and air conditioning / heating? Patient declined 09/03/2024 Transportation Answer Date Recorded Has the lack of transportati on kept you from meetings, work, or from getting things needed for daily living? No Has the lack of transportati on kept you from medical appointments or from getting medications? No 09/03/2024 Social Isolation Answer Date Recorded How often do you feel lonely or isolated from th ose around you? Rarely 09/03/2024 Food Risk Answer Date Recorded Within the past 12 months we worried whether our food would run out before we got money to buy more. Patient declined 025 Within the past 12 months th e food we bought just didn't last and we didn't have money to get more. Patient declined 08/12 Dependent Care Answer Date Recorded Do you need help finding or paying for care for your loved ones. For example, children's author or elderly care for an older adult? No 09/03/2024 Education Answer Date Recorded Do you think completing more education or training, like finishing a GED, going to college, or learning a trade, would be helpful for you? No 09/03/2024 Employment and Income Answer Date Recor ded During the last four weeks, have you been actively looking for work? No 09/03/2024 Living Situation Answer Date Recorded What is your living situation? 0 09/03/2024 Comments No Sex and Gender Information Value Date Recorded Sex Assigned at Not on file Legal Sex Female 1:06 PM EDT Gender Identity Not on file Sexual Orientation Not on file Obstetrics History Last Filed Vital Signs Vital Sign Reading Time Taken Comments Blood Pressure 103/70 12/07/2024 11:34 AM EDT AU TO Pulse 58 12/07/2024 11:34 AM EDT Temperature - - Respiratory Rate - - Oxygen Saturation - - Inhaled Oxygen Concentration - - Weight 97.2 kg (214 lb 3.2 oz) 12/07/2024 11:34 AM EDT Height 167.6 cm (5' 6 ) 12/07/2024 11:34 AM EDT Body Mass Index 34.57 12/07/2024 11:34 AM EDT Plan of Treatment Upcoming Encounters Date Type Department Care Team (Late st Contact Info) Description 01/04/2025 9:00 AM EDT Ancillary Procedure [facility] - [address] [place] [address] 02/13/2025 3:30 PM EST Office Visit Internal Medicine - [address] [phone] Elva Orona MD [address] [place] [address] 05/09/2025 1:00 PM EST Office Visit Internal Medicine - [address] [phone] Elva Orona MD [address] [place], [place] Health Maintenance Due Date Last Done Comments Breast Cancer Screening 1985 DTaP,Tdap,and Td Vaccines (1 - Tdap) 2003 Hepatitis B Vaccines (1 of 3 - 19+ 3-dose series) 2003 Cervical Cancer Screening: P ap Smear 2005 HIV Screening 07/06/2024 Hepatitis C Screening 07/06/2024 COVID-19 Vaccine (1 - 2023-2 5 season) 2024 Influenza Vaccine (#1) 2024 Social Influencers of Health Screening 09/03/2025 09/03/2024 Cholesterol Screening (Lipid Panel) 09/06/2029 09/06/2024 Depression Screening Completed 09/03/2024 HIB Vaccines Aged Out No longer eligi [...] 5 Years) and At-Risk Patients (6 to 49 Years) Aged Out No longer eligi ble based on patient's age to complete this topic RSV Immunization Patients Un mariza 20 months Aged Out No longer eligible b ased on patient's age to complete this topic Varicella Vaccines Aged Out No longer eligible based on patient's age to complete this topic Procedures Procedure Name Priority Date/Time Associated Diagnosis Comments VAS US DUPLEX LOWER EXT VENOUS LEFT Routine 10/10/2024 1:16 PM EDT Acute venous embolism and thrombosis of deep vessels of distal end of left lower extremity (CMS/HCC V24, CMS/HCC V28) ECG 12-LEAD Routine 09/23/2024 1:07 PM EDT Acute venous embolism and thrombosis of deep vessels of distal end of left lower extremity (CMS/HCC V24, CMS/HCC V28) Acute saddle pulmonary embolism with acute cor pulmonale (CMS/HCC V24, CMS/HCC V28) Dizziness LIPID PANEL WITH REFLEX TO DIRECT LDL Routine 09/06/2024 12:55 PM EDT Dizziness from Last 3 Months or Most Recently Relevant to Health Maintenance Results * Vascular US duplex lower extremity venous left (10/10/2024 1:16 PM EDT) Anatomical Region Laterality Modality Vascular, Abdomen Ultrasound 10/10/2024 1:18 PM EDT Impressions 10/10/2024 1:19 PM EDT No deep venous thrombosis in the left femoropopliteal system. -------- FINAL REPORT -------- Dictated By: Antonino Myrick Dictated Date: 10/10/2024 13:18 ET Assigned Physician: Antonino Myrick Reviewed and Electronically Signed By: Antonino Myrick Signed Date: 10/10/2024 13:19 ET Workstation ID: [id number] Transcribed By: Self Edit Transcribed Date: 10/10/2024 13:18 ET Narrative 10/10/2024 1:19 PM EDT EXAM: Venous Doppler unilateral, left INDICATIONS: DVT Hx follow up on LLE DVT on LT for 3 months , requesting around 4 week of September 2024 TECHNIQUE: Duplex venous evaluation of the lower extremity was performed utilizing graded compression, color and spectral Doppler interrogation. COMPARISON: Ultrasound bilateral lower extremity from 07/07/2024 FINDINGS: There is normal morphology, compressibility, Doppler flow of the left common femoral, superficial femoral, and popliteal vein. The peroneal and posterior tibial veins demonstrate normal color flow and compressibility. Procedure Note Antonino Myrick MD - 10/10/2024 EXAM: Venous Doppler unilateral, left INDICATIONS: DVT Hx follow up on LLE DVT on LT for 3 months , requesting around 4 week of September2024 TECHNIQUE: Duplex venous evaluation of the lower extremity was performedutilizing graded compression, color and spectral Doppler interrogation. COMPARISON: Ultrasound bilateral lower extremity from 07/07/2024 FINDINGS: There is normal morphology, compressibility, Doppler flow of the leftcommon femoral, superficial femoral, and popliteal vein. The peroneal andposterior tibial veins demonstrate normal color flow andcompressibility. IMPRESSION: No deep venous thrombosis in the left femoropopliteal system. -------- FINAL REPORT -------- Dictated By: Antonino Myrick Dictated Date: 10/10/2024 13:18 ET Assigned Physician: Antonino Myrick Reviewed and Electronically Signed By: Antonino Myrick Signed Date: 10/10/2024 13:19 ET Workstation ID: [id number] Transcribed By: Self Edit Transcribed Date: 10/10/2024 13:18 ET us Elva Orona MD CV VASCULAR PROCEDURES Final R esult * ECG 12 lead (09/23/2024 1:07 PM EDT) Ventricular Rate ECG 57 BPM GEMUSE Atrial Rate 57 BPM GEMUSE P-R Interval 140 ms GEMUSE QRS Duration 76 ms GEMUSE Q-T Interval 438 ms GEMUSE QTc 426 ms GEMUSE P Wave Erie 36 degrees GEMUSE R Erie 81 degrees GEMUSE T Erie 47 degrees GEMUSE ECG Interpretation Sinus bradycardia Otherwise normal ECG No previous ECGs available Confirmed by АННА MEDRANO ([id number]) on 09/23/2024 3:21:39 PM GEMUSE 09/23/2024 1:07 PM EDT 09/23/2024 3:21 PM EDT Анна Medrano MD ECG ORDERABLES Final Result GEMUSE * (ABNORMAL) Lipid panel with reflex to direct LDL (09/06/2024 12:55 PM EDT) Cholesterol 202(H) 0 - 200 mg/dL LAB CHEMISTRY METHOD 09/06/2024 6:30 PM EDT [facility] Triglycerides 69 0 - 150 mg/dL LAB CHEMISTRY METHOD 09/06/2024 6:30 PM EDT [facility] HDL 76 >=40 mg/dL LAB CHEMISTRY METHOD 09/06/2024 6:30 PM EDT [facility] LDL Calculated 112(H) 0 - 100 mg/dL LAB CHEMISTRY METHOD 09/06/2024 6:30 PM [facility] VLDL Cholesterol Jem 13.8 mg/dL LAB CHEMISTRY METHOD 09/06/2024 6:30 PM EDT [facility] Non HDL Chol. (LDL+VLDL) 126 <145 mg/dL LAB CHEMISTRY METHOD 09/06/2024 6:30 PM [facility] Chol/HDL Ratio 2.7 0.0 - 4.4 LAB CHEMISTRY METHOD 09/06/2024 6:30 PM [facility] Blood Venous blood specimen / Unknown Venipuncture / Unknown 09/06/2024 12:55 PM EDT 09/06/2024 12:55 PM EDT us Elva Orona MD LAB BLOOD ORDERABLES Final Res ult [facility] [address] [place] [address], from Last 3 Months or Most Recently Relevant to Health Maintenance Insurance [employer] Care Teams Advanced Analytics Associate Relationship Specialty Start Date End Date Elva Orona MD [address] [place] [address] PCP - General Internal Medicine 07/05/24
--- OUTSIDE RECORDS SUMMARY | 2024-12-20 17:43 | XMS_ITS | Encounter Summary ---
Author Organization [facility] Address [address] [place] [address] Care Team Providers Care Pepper Picker Name Role Phone Deion Orona MD Primary Care Provider [phone] Reason for Referral * Consultation (Routine) - Pending Review Specialty Diagnoses / Procedures Referred By Adrian francisco Referred To Contact Pulmonary Disease Diagnoses Acute saddle pulmonary embolism with acute cor pulmonale (CMS/HCC V24, CMS/HCC V28) Deion Orona MD [address] [place] [address] Phone: tel: fax: Referral ID Status Reason Start Date Expiration Date Visits Requested Visits Authorized [id number] Pending Review Specialty Services Required 12/20/2024 12/20/2025 1 1 Reason for Visit * Reason Onset Date Comments Referral 12/20/2024 Encounter Details Date Type Department Care Team (Late st Contact Info) Description 12/20/2024 [facility] [address] [place] [address] Deion Orona MD [address] [place] [address] Social History Tobacco Use Types Packs/Day Years Used Date Smoking Tobacco: Never Passive Smoke Exposure: Never Smokeless Tobacco: Never Alcohol Use Standard Drinks/Week Comments Not Currently [...] care for your loved ones. 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 [...] on file Sexual Orientation Not on file documented as of this encounter Progress Notes * Deion Orona MD - 12/20/2024 10:58 AM EDTAddended by: DEION ORONA on: 12/20/2024 10:58 AM Modules accepted: Orders * Allison Nguyễn MA - 12/20/2024 9:25 AM EDTAddended by: ALLISON NGUYỄN on: 12/20/2024 09:25 AM Modules accepted: Orders * Allison Nguyễn MA - 12/20/2024 9:24 AM EDT Pt needs new referral to pulmonary. Referral pended * Gino Shaffer - 12/20/2024 8:41 AM EDT Referral Request: What insurance does the patient have today? antonia Referrals cannot be processed if the insurance is not accurate. If the insurance listed above in red is NO BILLING INFORMATION FOUND FOR THIS ENCOUTNER The patients correct insurance must be obtained and registered in [facility] or their referral can not be processed. Who is calling to request this referral? Faxed to office If the caller is not the patient, what is their name? Ask the patient WHO referred them to this specialty: FIRST and LAST NAME of SPECIALIST PATIENT is seeing: Abigail Paulson What specialty is this? Pulmonology DIAGNOSIS Patient is being seen for (Not a body part or a procedure): pulmonary embolism Have you seen this SPECIALIST for this PROBLEM/DX before? If YES, when? Have you checked REVIEW or the APPT DESK to see if this referral has already been done or has visits left? Is this visit: Address of Specialist: [facility] [address], [facility] [address] Phone # of Specialist: [phone] Fax #: (if applicable): [phone] Does patient have an appointment scheduled?: yes Date of appointment- (including a retro-request): 12-20-24 Is this appointment related to: documented in this encounter Plan of Treatment Upcoming Encounters Date Type Department Care Team (Late st Contact Info) Description 01/04/2025 9:00 AM EDT Ancillary Procedure [facility] - [address] [place] [address] 02/13/2025 3:30 PM EST [facility] [address] [place] [address] Deion Orona MD [address] [place] [address] 05/09/2025 1:00 PM EST [facility] [address] [place] [address] Deion Orona MD [address] [place] [address] Scheduled Referrals Name Type Priority Associated Diagnoses Order Schedule Ambulatory referral to Interventional Pulmonology Outpatient Referral Routine Acute saddle pulmonary embolism with acute cor pulmonale (CMS/HCC V24, CMS/HCC V28) 1 Occurrences starting 12/20/2024 until 12/20/2025 documented as of this encounter Visit Diagnoses Diagnosis Acute saddle pulmonary embolism with acute cor pulmonale (CMS/HCC V24, CMS/HCC V28)- Primary documented in this encounter Additional Health Concerns Assessment Noted Time PHQ-9 Depression Total Score: 0 09/04/19 25 8:03 PM EDT documented as of this encounter Care Teams Pepper Picker Relationship Specialty Start Date End Date Deion Orona MD [address] [place] [address] PCP - General Internal Medicine 07/05/24 documented as of this encounter
== END 2024-12-20 16:24 | disposition home or self-care (01) ==
LOC: HO.HPSW 15:34
PROVIDERS: PCP Internal Medicine; Referring Provider Internal Medicine; Visit Provider Nurse Practitioner Family
DX: I26.09 Other pulmonary embolism with acute cor pulmonale (principal); R06.09 Other forms of dyspnea
CPT/HCPCS: 99204; G2211

== ENCOUNTER 2025-01-25 10:45 | Outpatient (REF) | payer MEDICAID, SELFPAY ==
--- NOTE | ~2025-01-25 | CT_ITS ---
EXAMINATION: CT ANGIOGRAM CHEST CLINICAL INFORMATION: EXAMINATION: CT ANGIOGRAM OF THE CHEST WITH AND WITHOUT CONTRAST (CT PULMONARY ANGIOGRAM FOR PE) CLINICAL INFORMATION: I26.09 - Other pulmonary embolism with acute cor pulmonale COMPARISON: CT 07/07/2024 TECHNIQUE: Prior to contrast administration, noncontrast localization images were obtained. Subsequently, multidetector volumetric imaging was performed from the thoracic inlet to below the diaphragms following the administration of 65 mL Omnipaque intravenous contrast. No contrast reaction reported Sagittal, coronal, and MIP oblique sagittal reformatted images were obtained on the CT workstation, uploaded to PACS, and reviewed. This CT examination was performed using dose optimization techniques as appropriate, variously including the following: *Automated exposure control *Adjustment of mA and/or kV according to patient size (this includes techniques or standardized protocols for targeted exams where dose is matched to indication/reason for exam; i.e. extremities or head) *Use of iterative reconstruction technique TOTAL DLP: 126 mGy-cm FINDINGS: QUALITY OF STUDY/CONTRAST BOLUS: Suboptimal opacification of the pulmonary arteries. PULMONARY ARTERIES: Suboptimal opacification of pulmonary arteries, evaluation is limited. No gross filling defects are identified in the main pulmonary arteries. THORACIC AORTA: No aneurysm. LUNG: Trachea and central airway are patent. Foci of reticular and groundglass opacities in the inferior right middle lobe and the lateral right lower lobe.. This could reflect atelectasis or inflammatory/infectious process. No focal consolidation identified in the left lung. PLEURA: No pleural effusion or pneumothorax. MEDIASTINUM: Normal heart size. No pericardial effusion. No hilar or mediastinal lymphadenopathy. No findings to suggest right heart strain. CORONARY ARTERY CALCIFICATION: None visualized on this study. CHEST WALL/AXILLA: No axillary or internal mammary lymphadenopathy. OSSEOUS STRUCTURES: No acute osseous findings UPPER ABDOMEN: Unremarkable. No reflux of contrast into the hepatic veins to suggest elevated right heart pressures. CT/CT angio chest PE protocol IMPRESSION: * Suboptimal opacification of the pulmonary arteries. Suboptimal limited evaluation. No gross filling defects identified in the main pulmonary arteries, but evaluation is limited. Repeat study or VQ scan as clinically indicated. * Foci of reticular and groundglass opacities in the right middle, lower lobe as detailed above. This could reflect atelectasis, inflammatory/infectious process. * Additional note as above. Fleischner guidelines were followed. Electronically signed by: Rashaad Cochran MD 01/25/2025 11:54 AM EDT RP
[2025-01-25] MEDS: iohexoL 350 MG/ML 100 ML INFUS..BTL IV (11:12)
--- OUTSIDE RECORDS SUMMARY | 2025-01-25 12:57 | XMS_ITS | Clinical Summary ---
Author Organization [address] Address [address] [place] [address] Phone Care Team Providers Care Bridge Teacher Name Role Phone Elva Orona MD Primary Care Provider Allergies No known active allergies Medications Eliquis 5 mg tablet Take 1 tablet (5 mg total) by mouth 2 (two) times a day. 180 each 1 09/06/2024 Active Active Problems Problem Noted Date Diagnosed Date Pulmonary hypertension ([facility] V24, CMS/[facility] V28 ) 09/23/2024 Acute venous embolism and th rombosis of deep vessels of distal lower extremity (CMS/[facility] V24, CMS/[facility] V28) 09/20/2024 Dizziness 09/20/2024 Acute saddle pulmonary embol ism with acute cor pulmonale (CMS/[facility] V24, CMS/[facility] V28) 09/20/2024 Encounters Date Type Department Care Team Description 01/04/2025 9:00 AM EDT Ancillary Procedure [facility] - [address] [place] [address] Acute saddle pulmonary embolism with acute cor pulmonale (CMS/[facility] V24, CMS/[facility] V28); Dizziness 12/20/2024 Telephone Internal Medicine - [address] [phone] Elva Orona MD 12/07/2024 11:00 AM EDT [facility] [place] [phone] Elva Orona MD Pain of right hip (Primary Dx); Chronic saddle pulmonary embolism, unspecified whether acute cor pulmonale present ([facility] V24, [facility] V28); Pulmonary hypertension ([facility] V24, [facility] V28); Anemia, unspecified type; 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 For example, director child abuse therapy or elderly care for an older adult? [...] Date Recorded What is your living situation? Unrecognized valu e 09/03/2024 Comments No Sex and Gender Information Value Date Recorded Sex Assigned at Not on file Legal Sex Female 1:06 PM EDT Gender Identity Not on file Sexual Orientation Not on file Obstetrics History Last Filed Vital Signs Vital Sign Reading Time Taken Comments Blood Pressure 110/70 01/04/2025 9:51 AM EDT Pulse 58 12/07/2024 11:34 AM EDT Temperature - - Respiratory Rate - - Oxygen Saturation - - Inhaled Oxygen Concentration - - Weight 98 kg (216 lb) 01/04/2025 9:51 AM EDT Height 160 cm (5' 3 ) 01/04/2025 9:51 AM EDT Body Mass Index 38.26 01/04/2025 9:51 AM EDT Plan of Treatment Upcoming Encounters Date Type Department Care Team (Late st Contact Info) Description 02/13/2025 3:30 PM EST [facility] [place] [phone] Elva Orona MD [address] [facility] [place] 02/14/2025 8:30 AM EST Consult Orthopedic Surgery - [place] [address] [facility] [address] [place] [phone] Kusum Early MD [address] [address] 05/09/2025 1:00 PM EST Office Visit Internal Medicine - [facility] [address] [place], [place] [phone] Elva Orona MD [address] [place] [address] Health Maintenance Due Date Last Done Comments Breast Cancer Screening 1984 DTaP,Tdap,and Td Vaccines (1 - Tdap) 2003 Hepatitis B Vaccines (1 of 3 - 19+ 3-dose series) 2003 Cervical Cancer Screening: P ap Smear 2005 HPV Vaccines (1 - 3-dose SCD M series) 2011 HIV Screening 07/06/2024 Hepatitis C Screening 07/06/2024 COVID-19 Vaccine ( - 2023-2 5 season) 2024 Influenza Vaccine (#1) 2024 Social Influencers of Health Screening 09/03/2025 09/03/2024 Cholesterol Screening (Lipid Panel) 09/06/2029 09/06/2024 RSV Immunization Adult Patie nts (1 - 1-dose 75+ series) 2059 Depression Screening Completed 09/03/2024 HIB Vaccines Aged [...] Procedure Name Priority Date/Time Associated Diagnosis Comments LIPID PANEL WITH REFLEX TO DIRECT LDL Routine 09/06/2024 12:55 PM EDT Dizziness from Last 3 Months or Most Recently Relevant to Health Maintenance Results * (ABNORMAL) Lipid panel with reflex to direct LDL (09/06/2024 12:55 PM EDT) Cholesterol 202(H) 0 - 200 mg/dL LAB CHEMISTRY METHOD 09/06/2024 6:30 PM EDT [facility] Triglycerides 69 0 - 150 mg/dL LAB CHEMISTRY METHOD 09/06/2024 6:30 PM EDT [facility] HDL 76 >=40 mg/dL LAB CHEMISTRY METHOD 09/06/2024 6:30 PM EDT [facility] LDL Calculated 112(H) 0 - 100 mg/dL LAB CHEMISTRY METHOD 09/06/2024 6:30 PM EDT [facility] VLDL Cholesterol Jem 13.8 mg/dL LAB CHEMISTRY METHOD 09/06/2024 6:30 PM EDT [facility] Non HDL Chol. (LDL+VLDL) 126 <145 mg/dL LAB CHEMISTRY METHOD 09/06/2024 6:30 PM EDT [facility] Chol/HDL Ratio 2.7 0.0 - 4.4 LAB CHEMISTRY METHOD 09/06/2024 6:30 PM T [facility] Blood Venous blood specimen / Unknown Venipuncture / Unknown 09/06/2024 12:55 PM EDT 09/06/2024 12:55 PM EDT us Elav Orona MD LAB BLOOD ORDERABLES Final Res ult [facility] [address] [place] [address], from Last 3 Months or Most Recently Relevant to Health Maintenance Insurance [facility] Care Teams Bridge Teacher Relationship Specialty Start Date End Date Elva Orona MD [address] [place] [address] PCP - General Internal Medicine 07/05/24
== END 2025-01-25 10:46 | disposition home or self-care (01) ==
LOC: HO.CT 10:45
PROVIDERS: PCP Internal Medicine; Visit Provider Nurse Practitioner Family
DX: I26.09 Other pulmonary embolism with acute cor pulmonale (principal)
CPT/HCPCS: 71275; Q9967

== ENCOUNTER → 2025-01-25 10:47 | Outpatient (BNV) | payer MEDICAID, SELFPAY | PROVIDERS: PCP Internal Medicine; Visit Provider Radiology Diagnostic Ultrasound | DX: I26.09 Other pulmonary embolism with acute cor pulmonale (principal) | CPT/HCPCS: 71275 ==

== ENCOUNTER 2025-03-03 11:38 | Outpatient (AMB) | payer OTHER, SELFPAY ==
--- NOTE | 2025-03-03 11:40 | MHC.OFFVIS ---
Vital Signs 03/03/25 11:41 Height 5 ft 6 in Weight 220 lb 4 oz BMI 35.5 BP 98/60 Blood Pressure Location Rt brachial Position Sitting Pulse 78 Pulse Source Pulse Oximeter Pulse Oximetry (%) 97 Oxygen Delivery Method Room Air Intake Visit Reasons: Pulmonary embolism Allergies No Known Allergies Allergy (Verified 03/03/25 11:47) HPI HPI Pulmonary embolism: Details: Marilynn is a pleasant 39-year-old female, never smoker, with underlying h/o provoked PE and DVT 06/2024 and hypothyroidism. She was initially referred by PCP for pulmonary evaluation. The DVT/PE occurred in June after an 18-hour drive, starting in the left leg and requiring hospitalization for clot removal and initiation of Eliquis therapy. CT angiogram of the chest which shows saddle pulmonary embolism with large bilateral PE burden and evidence of right heart strain. Minimal subpleural opacities in the right lower lobe possibly related to ischemia in the setting of PE. Ultrasound of the left lower extremity revealed a deep vein thrombi from the left femoral into the popliteal and peroneal veins. The patient underwent mechanical thrombectomy on 07/08/[address] Dyson. Initially treated with IV heparin and switch to apixaban. Recommendations made for Eliquis for 6-12 months. The patient was referred to a steam fitter supervisor, Dr. Orr, last evaluated in January with recommendations for at least 12 months of therapy. Unfortunately, the patient continues to not take Eliquis, off for the last 2-3 months due to concerns about fertility, as she is trying to conceive. Previously attempted Lovenox however she reports insurance issues as she is not currently . The patient was informed by hematology, PCP as well as myself about the importance of continuing anticoagulation therapy to prevent recurrence, especially given the severity of the initial clot, however patient continues to refuse treatment. At the last visit she was sent for CTA to assess resolution of PE and presents to review results. Of note, initial CTA demonstrated evidence of right heart strain and has been evaluation by cardiology, possible [facility] and underwent echo which was performed 01/04/25, results not available today. She continues to report shortness of breath when climbing stairs, which she attributes to obesity that has been present prior to the PE. Denies cough, hemoptysis, chest pain, wheezing or chest tightness. At the last visit, patient was scheduled for a PFT unfortunately she no showed as she was unaware what the appointment was for. [facility] Medical History (Updated 12/22/24 @ 12:54 by Roshni Orr MD) High cholesterol Hypothyroidism Family History Other No significant family history Social History Household Members: Children Housing: Apartment Are you a primary acute care certified nursing assistant to a significant other at home: Yes Do you presently have visiting nurse or other home services: No Patient Tobacco Use Status: Never used Tobacco e-Cigarette/Vaping Use: Never Used Second Hand Smoke Exposure: No service: No Current occupational status: employed Current occupational exposures/hazards: No Review of Systems Const Denies chills, Denies excessive sweating, Denies fever(s), Denies headache(s) and Denies night sweats Eyes Denies dry eyes, Denies irritation and Denies itchy eyes ENT Reports Normal hearing present, Denies headache(s), Denies nasal congestion, Denies nasal discharge, Denies post nasal drip and Denies sore throat Card Denies chest pain, Denies chest pain at rest, Denies chest pain with activity, Denies claudication, Denies leg edema, Denies orthopnea and Denies paroxysmal nocturnal dyspnea Resp Denies chest congestion, Denies cough, Denies excessive phlegm production, Denies pain on inspiration, Denies pain with cough, Denies stridor and Denies wheezing Musc Denies myalgias Neuro Reports Normal hearing present and Denies headache(s) Endo Denies excessive sweating Surjit/Lymph Denies lymphadenopathy Aller/Immun Denies itchy eyes, Denies seasonal rhinorrhea and Denies wheezing Physical Exam Vital Signs: Last Vital Signs Pulse 78 03/03/25 11:41 BP 98/60 03/03/25 11:41 Pulse Ox 97 03/03/25 11:41 Oxygen Delivery Method Room Air 03/03/25 11:41 BMI result Body Mass Index 35.5 Const General: cooperative, healthy appearing, comfortable, no acute distress, well developed and alert Nutritional Appearance: obese Orientation/consciousness: patient oriented x3 Limitations: no limitations HEENT Head: Yes normal to inspection, Yes normocephalic and Yes atraumatic Ears: hearing grossly normal bilaterally and external ears normal Eyes General: appearance normal, both eyes and all related structures Eyelids: Yes eyelids normal Sclerae: sclerae normal EOM: EOMs intact bilaterally Neck Neck: Yes normal visual inspection and Yes no lymphadenopathy Lymphatic: no lymphadenopathy noted Chest Chest palpation & inspection: normal inspection of the chest Resp Effort & Inspection: normal respiratory effort, able to speak in complete sentences, no audible wheezes, no cough, no stridor, not tachypneic, no tripod positioning and no use of accessory muscles Auscultation: clear to auscultation bilaterally Cardio Jugular venous distension: no JVD Rate: regular rate Rhythm: regular rhythm Skin Other: warm, dry General skin exam: no rashes or lesions noted Neuro General: patient oriented x3 Cranial nerves: Yes Normal hearing present Cognition (Neuro): normal cognition Gait exam (Neuro): Normal gait present Extrem General: Yes normal to inspection, Yes capillary refill normal, Yes no clubbing, cyanosis or edema and Yes no pedal edema Psych Appearance: grossly normal and well kempt Speech and movement: Normal speech and movement present and Clear speech present Affect: normal affect Attitude: cooperative Thought process: Normal thought process present Thought content: Normal thought content present Insight: Good insight present (Psych) Judgement: Good judgement present (Psych) Results Reviewed Results Reviewed: [place] [address] CT Scan Report Signed Patient: Marilynn Batista MR#: [id number] : 1985 Acct:[id number] Age/Sex: 39 / F ADM Date: 01/25/25 Loc: .CT Attending Dr: Abigail Paulson NP Ordering Physician: Abigail Paulson NP Date of Service: 01/25/25 Procedure(s): CT angio chest PE protocol Accession Number(s): [id number] cc: Shayne Orona MD; Abigail Paulson NP~ Report Number: [id number]: Total DLP = 126.00 mGy-cm Reason for Exam: I26.09 - Other pulmonary embolism with acute cor pulmonale EXAMINATION: CT ANGIOGRAM CHEST CLINICAL INFORMATION: EXAMINATION: CT ANGIOGRAM OF THE CHEST WITH AND WITHOUT CONTRAST (CT PULMONARY ANGIOGRAM FOR PE) CLINICAL INFORMATION: I26.09 - Other pulmonary embolism with acute cor pulmonale COMPARISON: CT 07/07/2024 TECHNIQUE: Prior to contrast administration, noncontrast localization images were obtained. Subsequently, multidetector volumetric imaging was performed from the thoracic inlet to below the diaphragms following the administration of 65 mL Omnipaque intravenous contrast. No contrast reaction reported Sagittal, coronal, and MIP oblique sagittal reformatted images were obtained on the CT workstation, uploaded to PACS, and reviewed. This CT examination was performed using dose optimization techniques as appropriate, variously including the following: *Automated exposure control *Adjustment of mA and/or kV according to patient size (this includes techniques or standardized protocols for targeted exams where dose is matched to indication/reason for exam; i.e. extremities or head) *Use of iterative reconstruction technique TOTAL DLP: 126 mGy-cm FINDINGS: QUALITY OF STUDY/CONTRAST BOLUS: Suboptimal opacification of the pulmonary arteries. PULMONARY ARTERIES: Suboptimal opacification of pulmonary arteries, evaluation is limited. No gross filling defects are identified in the main pulmonary arteries. THORACIC AORTA: No aneurysm. LUNG: Trachea and central airway are patent. Foci of reticular and groundglass opacities in the inferior right middle lobe and the lateral right lower lobe.. This could reflect atelectasis or inflammatory/infectious process. No focal consolidation identified in the left lung. PLEURA: No pleural effusion or pneumothorax. MEDIASTINUM: Normal heart size. No pericardial effusion. No hilar or mediastinal lymphadenopathy. No findings to suggest right heart strain. CORONARY ARTERY CALCIFICATION: None visualized on this study. CHEST WALL/AXILLA: No axillary or internal mammary lymphadenopathy. OSSEOUS STRUCTURES: No acute osseous findings UPPER ABDOMEN: Unremarkable. No reflux of contrast into the hepatic veins to suggest elevated right heart pressures. CT/CT angio chest PE protocol IMPRESSION: * Suboptimal opacification of the pulmonary arteries. Suboptimal limited evaluation. No gross filling defects identified in the main pulmonary arteries, but evaluation is limited. Repeat study or VQ scan as clinically indicated. * Foci of reticular and groundglass opacities in the right middle, lower lobe as detailed above. This could reflect atelectasis, inflammatory/infectious process. * Additional note as above. Fleischner guidelines were followed. 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 The patient is advised to restart Eliquis as recommended by steam fitter supervisor, Dr. Orr, for a total of 12 months due to the significant risk of recurrence. She is contemplating restarting. Reviewed repeat CTA which was a suboptimal study. Will send for ddimer if elevated, then will send for VQ scan. Signs and symptoms which warrant emergent evaluation reviewed. Will reach out to CS to reschedule PFT. Will reach out to cardiology to obtain repeat echo. All questions were answered and patient is in agreement of plan. Will follow up to review results or sooner if needed. Orders: Orders D Dimer High Sensitivity 03/03/25 I26.09 - Other pulmonary embolism with acute cor pulmonale, R06.09 - Other forms of dyspnea Coding Level of Care Code Est Pt Level 4 (01867) Complex visit Add On G2211 Diagnoses Acute pulmonary embolism with acute cor pulmonale, unspecified pulmonary embolism type I26.09 Acute cor pulmonale presence: with acute cor pulmonale Chronicity: acute Pulmonary embolism type: unspecified Dyspnea on exertion R06.09
[2025-03-03 11:41] VITALS: BP 98/60; PULSE 78; O2SAT 97; BMI 35.5
--- OUTSIDE RECORDS SUMMARY | 2025-03-03 12:26 | XMS_ITS | Clinical Summary ---
Author Organization [facility] Address [address] [place] [address] Phone Care Team Providers Care Farm Equipment Operator Name Role Phone Elva Orona MD Primary Care Provider [phone] Allergies No known active allergies Medications Eliquis 5 mg tablet Take 1 tablet (5 mg total) by mouth 2 (two) times a day. 180 each 1 5 08/09/19 26 Active Additional Information Patient not taking.Reported on 02/16/2025 iron fum,ps/folic acid/vitC/B3 (IRON FOLATE-F ORAL) Take by mouth. Activ e meloxicam (MOBIC) 15 mg tablet Take 1 tablet (15 mg total) by mouth 1 (one) time each day. 30 tablet 2 5 05/17/19 26 Active Eliquis 5 mg tablet Take 1 tablet (5 mg total) by mouth 2 (two) times a day. 180 each 1 5 02/10/20 25 Discontin ued(Reord er) Active Problems Problem Noted Date Diagnosed Date Pulmonary hypertension (CMS/HCC V24, CMS/HCC V28 ) 09/23/2024 Acute venous embolism and th rombosis of deep vessels of distal lower extremity (CMS/HCC V24, CMS/HCC V28) 09/20/2024 Dizziness 09/20/2024 Acute saddle pulmonary embol ism with acute cor pulmonale (CMS/HCC V24, CMS/HCC V28) 09/20/2024 Encounters Date Type Department Care Team Description 02/20/2025 Telephone [facility] [place] [address] Elva Orona MD 02/16/2025 10:00 AM EST Consult Orthopedic Surgery - [place] [address] [place] [phone] Charlene Longo MD Trochanteric bursitis of right hip (Primary Dx); Right hip pain 02/09/2025 9:00 AM EDT Office Visit Internal Medicine - [address] [place] [address] Elva Orona MD Annual physical exam (Primary Dx); Immunization due; Screening for deficiency anemia; Other chronic pulmonary embolism without acute cor pulmonale (CMS/HCC V24, CMS/HCC V28); Current use of detention anticoagulation; Blurry vision, bilateral 01/26/2025 Results Follow-Up [facility] - [address] [place] [address] Анна Mosqueda MD 01/04/2025 9:00 AM EDT Ancillary Procedure [facility] - [address] [place] [phone] Acute saddle pulmonary embolism with acute cor pulmonale (CMS/HCC V24, CMS/HCC V28); Dizziness 12/20/2024 Telephone [facility] [place] [address] Elva Orona MD 12/07/2024 11:00 AM EDT [facility] [address] [place] [phone] Elva Orona MD Pain of right hip (Primary Dx); Chronic saddle pulmonary embolism, unspecified whether acute cor pulmonale present (CMS/HCC V24, CMS/HCC V28); Pulmonary hypertension (CMS/[facility] V24, [facility] V28); Anemia, unspecified type; Current use of detention anticoagulation; Dyspnea, unspecified type from Last 3 Months Immunizations Immunization Administration Dates Next Due Influenza trivalent, MDCK, 0 .5mL, preservative free (Flucelvax) 6mo and older 02/09/2025 Surgical History Surgery Date Site/Laterality Comments EMBOLECTOMY 07/08/2024 SECTION, LOW TRANSVERSE Medical History Medical History Date Comments Blurry vision, bilateral Weakness Numbness in both legs Headache Pneumonia Disease of thyroid gland Anxiety Hypercholesteremia Family History Medical History Relation Name Comments Hypertension Mother Fidelina Graham passed Relation Name Status Comments Mother Fidelina Graham Alive Social History Tobacco Use Types Packs/Day Years Used Date Smoking Tobacco: Never Passive Smoke Exposure: Never Smokeless Tobacco: Never Tobacco Cessation:Counseling Given: Not Answered Alcohol Use Standard Drinks/Week Comments Not Currently 0 (1 standard drink = 0.6 oz pur e alcohol) Housing Instability Answer Date Recorde d Are you worried that in the next 2 months you may not have stable housing? No 02/09/2025 Food Access & Nutrition Answer Date Rec orded Do you have access to a vari ety of food including fruits and vegetables? Yes 02/09/2025 Access to Healthcare Answer Date Record ed Within the last 3 months, ho w many times did you visit the emergency department for your medical care? 0 02/09/2025 Health Literacy Answer Date Recorded How often do you need to hav e someone help you when you read instructions, pamphlets, or other written material from your doctor or pharmacy? Never 02/09/2025 Caregiver: How often do you need to have someone help you when you read instructions, pamphlets, or other written material from your doctor or pharmacy? Not on file 02/09/2025 Financial Risk Answer Date Recorded How hard is it for you to pa y for the very basics like food, housing, medical care, and air conditioning / heating? Somewhat hard 02/09/2025 Transportation Answer Date Recorded Has the lack of transportati on kept you from meetings, work, or from getting things needed for daily living? No Has the lack of transportati on kept you from medical appointments or from getting medications? No 02/09/2025 Social Isolation Answer Date Recorded How often do you feel lonely or isolated from those around you? Sometimes 02/09/2025 Food Risk Answer Date Recorded Within the past 12 months we worried whether our food would run out before we got money to buy more. Never true 02/09/2025 Within the past 12 months th e food we bought just didn't last and we didn't have money to get more. Never true 02/09/2025 Dependent Care Answer Date Recorded Do you need help finding or paying for care for your loved ones. For example, home child care provider or elderly care for an older adult? No 02/09/2025 Education Answer Date Recorded Do you think completing more education or training, like finishing a GED, going to college, or learning a trade, would be helpful for you? No 02/09/2025 Employment and Income Answer Date Recor ded During the last four weeks, have you been actively looking for work? No 02/09/2025 Living Situation Answer Date Recorded What is your living situation? Unrecognized valu e 02/09/2025 Comments No Sex and Gender Information Value Date Recorded Sex Assigned at Not on file Legal Sex Female 1:06 PM EDT Gender Identity Not on file Sexual Orientation Not on file Obstetrics History Last Filed Vital Signs Vital Sign Reading Time Taken Comments Blood Pressure 106/73 02/09/2025 9:23 AM EDT aut o Pulse 74 02/09/2025 9:23 AM EDT Temperature 36.7 C (98.1 F) 02/09/2025 9:23 AM EDT Respiratory Rate - - Oxygen Saturation - - Inhaled Oxygen Concentration - - Weight 100 kg (221 lb) 02/16/2025 10:08 AM EST Height 160 cm (5' 2.99 ) 02/16/2025 10:08 AM EST Body Mass Index 39.16 02/16/2025 10:08 AM EST Plan of Treatment Upcoming Encounters Date Type Department Care Team (Late st Contact Info) Description 03/16/2025 10:30 AM EST Evaluation [facility] - [place] [address] [phone] Lex Smith, PT 175 [place] [address] 04/11/2025 10:00 AM EST Office Visit Orthopedic Surgery - [place] 160 175 [facility] 160 [place] [phone] Charlene Longo MD 175 [facility] 160 [place] [address] 08/28/2025 1:00 PM EDT Office Visit Internal Medicine - [facility] [address] [place], [place] [phone] Elva Orona MD [address] [place], [place] Health Maintenance Due Date Last Done Comments Breast Cancer Screening 1984 DTaP,Tdap,and Td Vaccines (1 - Tdap) 2003 Hepatitis B Vaccines (1 of 3 - 19+ 3-dose series) 2003 Cervical Cancer Screening: P ap Smear 2005 HPV Vaccines (1 - 3-dose SCD M series) 2011 HIV Screening 07/06/2024 Hepatitis C Screening 07/06/2024 COVID-19 Vaccine ( - 2024-2 6 season) 2024 Social Influencers of Health Screening 02/09/2026 02/09/2025 Cholesterol Screening (Lipid Panel) 09/06/2029 09/06/2024 RSV Immunization Adult Patie nts (1 - 1-dose 75+ series) 2059 Depression Screening Completed 02/09/2025 Influenza Vaccine Completed 02/09/2025 HIB Vaccines Aged Out No longer eligi [...] Procedure Name Priority Date/Time Associated Diagnosis Comments TRANSTHORACIC ECHOCARDIOGRAM (TTE) COMPLETE Routine 01/04/2025 9:51 AM EDT Acute saddle pulmonary embolism with acute cor pulmonale (CMS/HCC V24, CMS/HCC V28) Dizziness LIPID PANEL WITH REFLEX TO DIRECT LDL Routine 09/06/2024 12:55 PM EDT Dizziness from Last 3 Months or Most Recently Relevant to Health Maintenance Results * TRANSTHORACIC ECHOCARDIOGRAM (TTE) COMPLETE (01/04/2025 9:51 AM EDT) Left Atrium Minor [place] 4.7 cm CV PACS Left Atrium Major [place] 5.1 cm CV PACS LA Area Sys (A2C) 15 cm2 CV PACS LA Area Sys (A4C) 18 cm2 CV PACS LA Volume (BP) 45 mL CV PACS RA Area 16.7 cm2 CV PACS RA 2D Volume 42 mL CV PACS Aortic Sinus Valsalva 3.0 cm CV PACS Ascending Aorta 2.7 cm CV PACS IVC Proximal 1.8 cm CV PACS IVC Proximal 0.8 cm CV PACS IVSD 0.8 0.6 - 0.9 cm CV PACS LVIDD 4.9 3.8 - 5.2 cm CV PACS LVIDS 2.6 2.2 - 3.5 cm CV PACS LVOT Diameter 2.1 cm CV PACS LVOT Mean Mk 0.8 m/s CV PACS LVOT Mean Grad 3 mmHg CV PACS LVOT Peak VTI 25.9 cm CV PACS LVOT Peak Mk 1.1 m/s CV PACS LVOT Peak Gradient 5 mmHg CV PACS LVPWD 0.7 0.6 - 0.9 cm CV PACS MV E' Tissue Velocity Lateral 15 cm/s CV PACS MV E' Tissue Velocity Septal 8 cm/s CV PACS LVOT Area 3.5 cm2 CV PACS LVOT Stroke Volume 90 mL CV PACS E Wave Deceleration Time 162 119 - 242 ms CV PACS MV Peak A Mk 0.68 m/s CV PACS MV Peak E Mk 1.09 m/s CV PACS PV Acceleration Time 173 ms CV PACS PV Acceleration Time 183 ms CV PACS PV Acceleration Time 178 ms CV PACS RV Diastolic Basal Dimension 3.9 2.5 - 4.1 cm CV PACS RV S' 12 cm/s CV PACS TAPSE 22 mm CV PACS TR Peak Velocity 2.32 m/s CV PACS TR Peak Gradient 22 mmHg CV PACS E/E' Ratio Septal 14 CV PACS E/E' Ratio Averaged 10 CV PACS Relative Wall Thickness ratio 0.29 CV PACS FS 47 % CV PACS LV Mass 2D 121 g CV PACS LVOT flow 277 mL/s CV PACS E/A Ratio 1.6 CV PACS E/E' Ratio Lateral 7 CV PACS BSA 2.09 m2 CV PACS LA Volume Index (BP) 23 mL/m2 CV PACS LVIDD Index 2.45 cm/m2 CV PACS LVIDS Index 1.30 cm/m2 CV PACS LV Mass Index 2D 60 44 - 88 g/m2 CV PACS LVOT Stroke Index 45 mL/m2 CV PACS RA 2D Volume Index 21 15 - 27 mL/m2 CV PACS Ascending Aorta Index 1.35 cm/m2 CV PACS Right Ventricular Peak Systolic Pressure 30 mmHg CV PACS Est. RA Pressure 8 mmHg CV PACS Anatomical Region Laterality Modality Ultrasound Narrative 01/26/2025 10:02 PM EDT 1. Normal biventricular size and systolic function. Normal left ventricular regional wall motion with an ejection fraction of 55-60%. 2. No hemodynamically significant valve disease. 3. Normal left ventricular diastolic function. Normal pulmonary artery systolic pressure. Technically adequate, 2D, M-mode, and Doppler echocardiogram without significant pathologic findings. Left Ventricle Left ventricle cavity size is normal. Wall thickness is normal. Systolic function is normal with an ejection fraction of 55-60%. There are no regional LV wall motion abnormalities. There is no diastolic dysfunction and normal left atrial pressure. Right Ventricle Right ventricle cavity appears normal. Systolic function is normal. Left Atrium Left atrium cavity size is normal. Right Atrium Right atrium cavity is normal. IVC/SVC Inferior vena cava structure is normal. RA pressures is estimated to be 8 mmHg (IVC diameter <21 mm and decreases <50% during inspiration). Mitral Valve Mitral valve structure is normal. The leaflets exhibit normal excursion. There is trivial mitral valve regurgitation. There is no significant stenosis noted. Tricuspid Valve Tricuspid valve structure is normal. There is trace regurgitation. There is no significant tricuspid valve stenosis. The right ventricular systolic pressure is normal. The RVSP is estimated at 30 mmHg. Aortic Valve The aortic valve is trileaflet. The leaflets are not thickened and exhibit normal excursion. There is no regurgitation or stenosis. Pulmonic Valve Pulmonic valve structure is normal. No significant pulmonic valve regurgitation. There is no evidence of pulmonic valve stenosis. Ascending Aorta The aorta appears normal in size. Pericardium Pericardium appears normal. There is no pericardial effusion. Study Details Overall the study quality was adequate. Анна Mosqueda MD CV ECHO PROCEDURES Final Result * (ABNORMAL) Lipid panel with reflex to direct LDL (09/06/2024 12:55 PM EDT) Cholesterol 202(H) 0 - 200 mg/dL LAB CHEMISTRY METHOD 09/06/2024 6:30 PM [facility] Triglycerides 69 0 - 150 mg/dL LAB CHEMISTRY METHOD 09/06/2024 6:30 PM [facility] HDL 76 >=40 mg/dL LAB CHEMISTRY METHOD 09/06/2024 6:30 PM T [facility] LDL Calculated 112(H) 0 - 100 mg/dL LAB CHEMISTRY METHOD 09/06/2024 6:30 PM [facility] VLDL Cholesterol Jem 13.8 mg/dL LAB CHEMISTRY METHOD 09/06/2024 6:30 PM [facility] Non HDL Chol. (LDL+VLDL) 126 <145 mg/dL LAB CHEMISTRY METHOD 09/06/2024 6:30 PM [facility] Chol/HDL Ratio 2.7 0.0 - 4.4 LAB CHEMISTRY METHOD 09/06/2024 6:30 PM EDT [facility] Blood Venous blood specimen / Unknown Venipuncture / Unknown 09/06/2024 12:55 PM EDT 09/06/2024 12:55 PM EDT us Elva Orona MD LAB BLOOD ORDERABLES Final Res ult [facility] [address] [place] [address], from Last 3 Months or Most Recently Relevant to Health Maintenance Insurance [facility] Care Teams Farm Equipment Operator Relationship Specialty Start Date End Date Elva Orona MD [address] [place] [address] PCP - General Internal Medicine 07/05/24
--- OUTSIDE RECORDS SUMMARY | 2025-03-03 12:26 | XMS_ITS | Encounter Summary ---
Author Organization [facility] Address [address] [place] [address] Care Team Providers Care Management Lecturer Name Role Phone Elva Orona MD Primary Care Provider [phone] Encounter Details Date Type Department Care Team (Late st Contact Info) Description 01/26/2025 Results Follow-Up [facility] - [facility] [address] [facility] [address] [place] [phone] Анна Mosqueda MD [address] [place] [address] Dr R[address] [place] [phone] Social History Tobacco Use Types Packs/Day Years [...] Record ed Within the last 3 months, azeb cesar many times did you visit the emergency [...] for your loved ones. For example, children's service worker or elderly care for an older adult? [...] as of this encounter Progress Notes * Анна Mosqueda MD - 01/26/2025 10:04 PM EDT [employer] message sent to the patient regarding result. See below. documented in this encounter Plan of Treatment Upcoming Encounters Date Type Department Care Team (Late st Contact Info) Description 03/16/2025 10:30 AM EST Evaluation [facility] [place] 175 [facility] [address] [place] [phone] Lex Smith, PT 175 [place] [address] 04/11/2025 10:00 AM EST Office Visit Orthopedic Surgery - [place] [address] 175 [facility] 160 [place] [phone] Charlene Longo MD 175 [facility] 160 [place] [address] 08/28/2025 1:00 PM EDT Office Visit Internal Medicine - [facility] [address] [place], [place] [phone] Elva Orona MD [address] [place], [place] documented as of this encounter Visit Diagnoses Not on filedocumented in this encounter Additional Health Concerns Assessment Noted Time PHQ-9 Depression Total Score: 0 09/04/19 8:03 PM EDT documented as of this encounter Care Teams Management Lecturer Relationship Specialty Start Date End Date Elva Orona MD [address] [place] [address] PCP - General Internal Medicine 07/05/24 documented as of this encounter
== END 2025-03-03 12:06 | disposition home or self-care (01) ==
LOC: HO.HPSW 11:38
PROVIDERS: PCP Internal Medicine; Visit Provider Nurse Practitioner Family
DX: I26.09 Other pulmonary embolism with acute cor pulmonale (principal); R06.09 Other forms of dyspnea
CPT/HCPCS: 99214; G2211